=== PATIENT | male | born 1945 | race Caucasian/White ===

== ENCOUNTER 2021-04-18 18:28 | Inpatient (IN) | payer MEDICARE, SELFPAY ==
--- NOTE | ~2021-04-18 | XR_ITS ---
EXAMINATION: XR abdomen obstructive series DATE: 04/26/2021 05:55 INDICATION: Abdominal bloating TECHNIQUE: Upright and supine views of the abdomen were obtained. COMPARISON: CT, 04/18/2021 FINDINGS: There are multiple mildly dilated loops of small bowel. No free intraperitoneal gas is iden tified. There are minimal airspace opacities of the left lung base. A surgical drain is present in th e left lower quadrant. IMPRESSION: 1. Mildly dilated small bowel, likely postoperative ileus. Reviewed, dictated and finalized at location A.
--- NOTE | ~2021-04-18 | CT_ITS ---
EXAMINATION: CT abdomen pelvis w con INDICATION: Hematuria, pelvic pain TECHNIQUE: Computed tomographic images of the abdomen and pelvis were obtained after the administrati on of 100 cc of Omnipaque 350 intravenous contrast. The dose-length product (DLP) was 731.56 mGy-cm. Automated exposure control and iterative reconstruction technique were employed. COMPARISON: None available FINDINGS: Minimal dependent atelectasis is present in the lung bases. The heart size is normal. Punct ate calcifications in an otherwise normal spleen likely represent healed granulomatous disease. The l iver, pancreas, gallbladder, and adrenal glands are normal. There is a 4.5 x 3.3 cm complex and heter ogeneously enhancing mass of the right mid kidney. There is a 1.4 cm cyst of the left kidney upper po le. Colonic diverticulosis is present. There is wall thickening at the left anterolateral aspect of t he bladder which is contiguous with the adjacent sigmoid colon. Gas is present in the bladder wall. T here is also gas in the urinary bladder. The appendix is normal. There is no free intraperitoneal gas or evidence of bowel obstruction. There is marked enlargement of the prostate. There is an 11 mm lef t external iliac chain lymph node. A penile implant is noted with its reservoir implanted anteriorly in the right pelvis. There is severe lumbar spondylosis. . There is a left inguinal hernia containin g fat. IMPRESSION: 1. 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 2. Right kidney mass consistent with renal cell carcinoma. 3. Marked prostatomegaly. These findings were discussed with Dr. Tu Casarez DO in the Emergen cy Department at 2119 hours on 04/18/2021. 4. Enlarged left pelvic lymph node, reactive versus metastatic. Reviewed, dictated and finalized at location A. IMPRESSION: 1. Enterovesicular fistula between the sigmoid colon and left anterolateral maggie dder wall. 2. Right kidney mass consistent with renal cell carcinoma. 3. Marked prostatomegaly. These findings were discussed with Dr. Tu bejarano DO in the Emergency Department at 2119 hours on 04/18/2021. 4. Enlarged left pelvic lymph node, reactive versus metastatic.
--- NOTE | ~2021-04-18 | XR_ITS ---
EXAMINATION: XR chest 2V DATE: 04/18/2021 19:35 INDICATION: Fever and chills TECHNIQUE: PA and lateral views of the chest are obtained. COMPARISON: None available FINDINGS: There are minimal airspace opacities of the lung bases. There is no pleural effusion or pne umothorax. The cardiomediastinal silhouette is normal. There is mild thoracic spondylosis. IMPRESSION: 1. Minimal opacities of the lung bases, consistent with atelectasis versus pneumonia. Reviewed, dictated and finalized at location A. IMPRESSION: 1. Minimal opacities of the lung bases, consistent with atelectasis versus pneu monia.
[2021-04-18 18:35] VITALS: BP 126/75; PULSE 135; RESP 20; TEMP 38.1; O2SAT 99
[2021-04-18 19:08] LABS: Basophils Absolute Auto 0.1 K/mm3 (0.0-0.1); Basophils Percent Auto 0.4 % (0.2-1.2); Hematocrit 43.3 % (42.0-52.0); Hemoglobin 14.7 g/dL (14.0-18.0); Immature Granulocyte Percent A 0.5 % (0-0.5); Lymphocytes Absolute Auto 0.57 K/mm3 (0.9-3.2); Lymphocytes Percent Auto 2.7 % (18.3-44.2); Mean Corpuscular HGB Conc 33.9 g/dl (32-36); Mean Corpuscular Hemoglobin 29.6 pg (26-34); Mean Corpuscular Volume 87.1 fl (80-100); Mean Platelet Volume 9.3 fl (7.4-10.4); Monocytes Absolute Auto 0.6 K/mm3 (0.1-0.6); Monocytes Percent Auto 2.9 % (2.6-8.5); Neutrophils Absolute Auto 19.8 K/mm3 (1.3-6.7); Neutrophils Percent Auto 93.5 % (45.5-73.1); Platelet Count Result 374 k/mm3 (150-375); Red Blood Count 4.97 M/mm3 (4.6-6.20); Red Cell Distribution Width 13.5 % (11.5-14.5); White Blood Count 21.1 K/mm3 (4.5-10.0)
[2021-04-18 19:17] LABS: Lactic Acid Reflex 1.4 mmol/L (0.7-2.1)
[2021-04-18 19:20] LABS: INR 0.9; Prothrombin Time 12.5 Seconds (11.1-14.7)
[2021-04-18 19:21] LABS: Alanine Aminotransferase 17 U/L (4-50); Albumin Level 4.2 g/dL (3.5-5.1); Alkaline Phosphatase 74 U/L (38-126); Anion Gap 11 mmol/L (8-16); Aspartate Amino Transferase 23 U/L (17-59); Bilirubin,Total 0.9 mg/dL (0.2-1.3); Blood Urea Nitrogen 18 mg/dL (9-20); CRP 3.1 mg/dL (<1.0); Calcium 9.9 mg/dL (8.4-10.2); Carbon Dioxide 21 mmol/L (22-30); Chloride 100 mmol/L (98-107); Estimated CRCL calculation 53 ml/min; Estimated Glomerular Filt Rate > 60; Glucose 101 mg/dL (65-110); Lipase 69 U/L (23-300); Ovalocytes 1+ (NORMAL); Partial Thromboplastin Time 26.2 SECONDS (22.3-36.8); Platelet Estimate Adequate (Adequate); Potassium 4.5 mmol/L (3.4-5.0); Sodium 132 mmol/L (137-145)
[2021-04-18 19:29] LABS: Troponin I < 0.012 ng/mL (0.000-0.034)
--- NOTE | 2021-04-18 19:38 | ECG_ITS ---
Measurements Intervals [place] Rate: 109 P: MS: 0 QRS: 41 QRSD: 98 T: 25 QT: 327 QTc: 441 Interpretive Statements ATRIAL FLUTTER/TACHYCARDIA WITH RAPID VENTRICULAR RESPONSE BASELINE ARTIFACT- V1, V3-V6 ABNORMAL ECG Electronically Signed On 04-19-2021 6:43:42 CDT by Reginaldo Escobedo D.O.
--- NOTE | 2021-04-18 19:59 | ED.GENADULT ---
HPI - General Adult General Chief complaint: Urogenital-Male Stated complaint: bladder infection and fever. Time Seen by Provider: 04/18/21 19:14 Source: RN notes reviewed History of Present Illness HPI narrative: Patient presents emergency department from home for fever. Patient states that he developed a fever at home today 101 degrees and took Tylenol approximately an hour ago states he is had associated general aching with the fever. States he was seen by urology Dr. Hurtado today but has been having some bubbling coming out of his penis there was felt that he may have a fistula as he has a history of diverticulitis and supposed be getting a CT scan next week. States he did have a UTI 2 weeks ago and was placed on antibiotics he denies any chest pain shortness of breath coughing abdominal pain nausea vomiting or any other symptoms. Related Data Home Medications Medication Instructions Recorded Confirmed aspirin 81 mg PO DAILY 04/18/21 atorvastatin 04/18/21 losartan 04/18/21 omeprazole 04/18/21 tamsulosin mg PO 04/18/21 Allergies Allergy/AdvReac Type Severity Reaction Status Date / Time ORION Inhibitors Allergy Rash Verified 04/18/21 20:34 Penicillins Allergy Rash Verified 04/18/21 20:34 Review of Systems Review of Systems: Gen.: See HPI ENT: Denies congestion Respiratory: Denies shortness of breath or cough CV: Denies chest pain or palpitations GI: Denies abdominal pain nausea, emesis or diarrhea see HPI Musculoskeletal: Denies back pain or muscle pain Neuro: Denies numbness, tingling, weakness or focal weakness Skin: Denies rash Except as documented, all other systems reviewed and negative [facility] Past Medical History Medical History (Updated 04/18/21 @ 22:42 by Tu Casarez DO) Hypertension Social History Social History (Updated 04/18/21 @ 20:01 by Tu Casarez DO) Smoking status: Never smoker Exam Narrative: APPEARANCE: No acute distress, nontoxic, resting in bed EYES: EOMI HEENT: Normocephalic, atraumatic, OMM RESPIRATORY: No respiratory distress Clear to auscultation bilaterally with no rhonchi wheezing or rales. CARDIOVASCULAR: Regular rate and rhythm without murmurs rubs or gallops. ABDOMINAL: Soft, nontender, nondistended, no rebound or guarding MUSCULOSKELETAl: Moves all extremities. No clubbing, cyanosis or edema. NEURO: Awake and alert. Following commands, speech normal, no focal deficits SKIN:: Warm, dry. No rashes lesions or abrasions PSYCHIATRIC: Normal affect/mood, Course Course Emergency Course: Discussed with Dr. Jay rhinorrhea presentation work-up agrees with admission at this time with antibiotics request that consult be placed to GI as well patient will likely require GI work-up for fistula Discussed Dr. Pride presentation and work-up agrees with admission at this time Discussed with patient and family results of workup and diagnosis. Discussed need for admission. Patient and family understand and agree to current treatment plan Vital Signs Vital signs: Vital Signs Temperature 100.5 F H 04/18/21 18:35 Pulse Rate 135 H 04/18/21 18:35 Respiratory Rate 20 04/18/21 18:35 Blood Pressure 126/75 04/18/21 18:35 Pulse Oximetry 99 04/18/21 18:35 Temperature 100.3 F H 04/18/21 20:32 Pulse Rate 110 H 04/18/21 21:59 Respiratory Rate 16 04/18/21 21:59 Blood Pressure 112/78 04/18/21 21:59 Pulse Oximetry 97 04/18/21 21:59 Medical Decision Making Vital Signs Vital Signs: Vital Signs Temperature 100.5 F H 04/18/21 18:35 Pulse Rate 135 H 04/18/21 18:35 Respiratory Rate 20 04/18/21 18:35 Blood Pressure 126/75 04/18/21 18:35 Pulse Oximetry 99 04/18/21 18:35 Temperature 100.3 F H 04/18/21 20:32 Pulse Rate 110 H 04/18/21 21:59 Respiratory Rate 16 04/18/21 21:59 Blood Pressure 112/78 04/18/21 21:59 Pulse Oximetry 97 04/18/21 21:59 Lab Data Result diagrams: 04/18/21 18:54 0
[2021-04-18 20:17] LABS: Add Urine Microscopic? YES; Appearance Urine Cloudy (Clear); Bacteria Urine Trace /hpf; Bilirubin Urine Negative (Negative); Blood Urine 1+ (Negative); Color Urine Yellow (Yellow); Glucose Urine UA Negative (Negative); Ketones Urine Trace mg/dL (Negative); Leukocyte Esterase Ur 3+ LEU/UL (Negative); Nitrate Urine Negative (Negative); Protein Urine 2+ mg/dL (Negative); RBC Urine 21-50 /hpf (0-2); Specific Grav Ur 1.024 (1.001-1.035); Urobilinogen Urine Negative mg/dL (<2.0); WBC Clumps Urine Present /HPF; WBC Urine >75 /hpf
[2021-04-18 20:32] VITALS: BP 117/73; PULSE 105; RESP 20; TEMP 37.9; O2SAT 96
[2021-04-18] MEDS: SODIUM CHLORIDE 0.9% IV 1,000 ML 999 ML IV CONT (20:34)
[2021-04-18] MEDS: KETOROLAC 15 MG/ML VIAL (*BKC) IV PUSH (21:26)
[2021-04-18 21:59] VITALS: BP 112/78; PULSE 110; RESP 16; O2SAT 97
[2021-04-18 22:40] VITALS: BP 124/72; PULSE 109; RESP 17; O2SAT 97
[2021-04-18 22:45] VITALS: BP 106/63; PULSE 114; RESP 20; TEMP 37.2; O2SAT 98; BMI 27.8
--- NOTE | 2021-04-18 22:48 | PC.NURSE ---
This patient, Jung Palmer, was admitted to 3 Med Surg Room 332-01@22:45. Report taken from Mandy NAVA in ER. Patient/family oriented to hospital policies and general routines including ID bracelet, bed and alarms, visiting hours, pain management, procedures, bathroom and other care routines, personal items, smoking policy, room service/diet, and visiting hours. Information on how to activate the Rapid Response Team has been discussed. Patient/Family are encouraged to report perceived risks to care and to ask questions if they do not understand what they are told or what they should do.
[2021-04-18 23:02] VITALS: BMI 27.8
[2021-04-18] MEDS: SODIUM CHLORIDE 0.9% IV 1,000 ML 125 ML IV CONT (23:24)
--- NOTE | 2021-04-19 02:35 | PM.IMHP ---
H&P: HPI History of Present Illness Date/Time: 04/19/21 02:35 Chief Complaint: Chills Narrative: THIS IS A 75-YEAR-OLD MALE WITH PAST MEDICAL HISTORY SIGNIFICANT FOR HYPERTENSION, BENIGN PROSTATIC HYPERPLASIA, DIVERTICULOSIS, DIVERTICULITIS. PATIENT DOES HAD COMPLETED A COURSE OF ANTIBIOTICS FOR DIVERTICULITIS HE PRESENTED TO THE EMERGENCY ROOM DUE TO FEVERS AND CHILLS STATES THAT HE WAS PASSING GAS IN THE URINE . HE HAD BEEN TO SEE THE DOCTOR FOR THESE HAD EVALUATION AND WAS SENT HOME AND WAS SUPPOSED TO FOLLOW-UP WITH CT OF ABDOMEN AND PELVIS BUT INSTEAD PRESENTED TO THE EMERGENCY ROOM TODAY AFTER HE HAD AN EPISODE OF CHILLS AND RIGORS. SHE DENIES ANY NAUSEA ANY VOMITING ANY DIARRHEA OR CONSTIPATION HAD SOME PRESSURE IN THE PELVIC AREA HE THIS HAS BEEN GOING ON NOW FOR A WEEK OR SO. PRELIMINARY WORKUP WAS SIGNIFICANT FOR CT OF ABDOMEN AND PELVIS WITH GAS PRESENT IN THE URINARY BLADDER AND ENTERO VESICULAR FISTULA WELL RIGHT KIDNEY MASS. Review of Systems Review of Systems: PATIENT IS LAYING IN GURNEY Constitutional: Constitutional: Reports chills, Denies fatigue, Reports fever(s), Denies lethargy, Denies malaise, Reports night sweats and Denies weakness Eyes: Eyes: Denies change in vision ENT: Denies dysphagia and Denies odynophagia Cardiovascular: Cardiovascular: Denies irregular heart rhythm, Denies lightheadedness, Denies palpitations, Denies dyspnea, Denies dyspnea on exertion and Denies orthopnea Respiratory: Respiratory: Denies cough and Denies dyspnea Gastrointestinal: Gastrointestinal: Denies abdominal pain, Denies dyspepsia, Denies heartburn, Denies nausea and Denies vomiting Genitourinary: Genitourinary: Denies dysuria Comments: PASSING GAS IN THE URINE Musculoskeletal: Musculoskeletal: Denies back pain, Denies arthralgias and Denies joint swelling Integumentary/Breasts: Skin/Breast: Reports system reviewed and no additional complaints, except as docu Neurologic: Reports system reviewed and no additional complaints, except as documented Psychiatric: Psychiatric: Reports no additional psychiatric complaints Endocrine: Endocrine: Reports no additional endocrine complaints Hematologic/Lymphatic: Hematologic/Lymphatic: Reports no additional hematologic/lymphatic complaints Allergic/Immunologic: Allergic/Immunologic: Reports no additional allergic/immunologic complaints [facility] Past Medical History Medical History (Updated 04/19/21 @ 02:43 by Humble Kurtz MD) Hypertension Family History Family History (Updated 04/18/21 @ 23:12 by Dinora Rivas RN) Mother Congestive heart failure Father Lung cancer Social History Social History (Updated 04/18/21 @ 20:01 by Tu Casarez DO) Smoking status: Former smoker Alcohol intake: current Drinks per week: 4 Substance use: current Substance use type: marijuana Spiritual care concerns: No Meds Home Medications and Allergies Home Medications Medication Instructions Recorded Confirmed Type aspirin 81 mg PO DAILY 04/18/21 04/18/21 History atorvastatin 20 mg PO HS 04/18/21 04/18/21 History losartan 50 mg PO DAILY 04/18/21 04/18/21 History omeprazole 20 mg PO DAILY 04/18/21 04/18/21 History tamsulosin 0.4 mg PO DAILY 04/18/21 04/18/21 History Allergies Allergy/AdvReac Type Severity Reaction Status Date / Time ORION Inhibitors Allergy Rash Verified 04/18/21 22:52 Penicillins Allergy Rash Verified 04/18/21 22:52 Vital Signs Vital Signs - 24 hr 04/18/21 18:35 04/18/21 20:32 04/18/21 21:59 Temperature 100.5 F H 100.3 F H Pulse Rate 135 H 105 H 110 H Respiratory Rate 20 20 16 Blood Pressure 126/75 117/73 112/78 Pulse Oximetry 99 96 97 04/18/21 22:40 04/18/21 22:45 Temperature 99.0 F Pulse Rate 109 H 114 H Respiratory Rate 17 20 Blood Pressure 124/72 106/63 Pulse Oximetry 97 98 Exam Narrative: LAYING IN PERCY Const: General: cooperative, comfortable, no acute distress, well developed, a
[2021-04-19 06:00] VITALS: BP 106/63; PULSE 114; RESP 20; TEMP 37.2; O2SAT 98
--- NOTE | 2021-04-19 06:47 | WPDURCON ---
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 GI consultation pending. Pt. will likely need, at some point, colonoscopy. If convenient, I can try to do simultaneous cystoscopy. Underlying cause of enterovesical fistulas is usually GI related. 2nd priority: will start Finasteride for massively enlarge prostate. Will try to get prior PSA and repeat a PSA once current infection is cleared. 3rd priority: right renal cell ca. He should be a candidate for robotic right partial nephrectomy once other issues addressed. I discussed all above with pt. at length. Urology Consult Note HPI Date Seen: 04/19/21 Requesting Physician: Humble Kurtz MD Primary Care Provider: PHYSICIAN NOT ON STAFF Consult Narrative Narrative: Jung Palmer is a 75 year old male who lives locally but has medical care typically in [place]. He has a history of prostatism that is marginally controlled with tamsulosin. He reports consistently having normal PSAs in the past. He has had a penile prostheisis placed in past by a urologist at [facility]. Three days ago he developed pneumaturia and scant hematuria. He was referred to a urologist at [facility] (he cannot recall the physician's name ) by his primary care physician. He was in the process being set for CT scan of the abdomen and pelvis when, last evening, he developed fevers to 103? prompting presentation to the emergency department here. CT scan the abdomen and pelvis with without contrast reveals several findings note. First, he has evidence of fistula between the sigmoid colon and the anterior/ dome bladder. Secondly, he has marked enlargement of his prostate. Additionally, there is a 4.5 cm mass in the lower pole of his right kidney, consistent with primary renal cell carcinoma. A lastly, 1 marginally enlarged lymph node in left iliac chain that is nonspecific. Denies a history of hematuria urinary tract infections in the past. Review of Systems Cardiovascular: Cardiovascular: Denies chest pain, Denies lightheadedness, Denies palpitations and Denies dyspnea Respiratory: Respiratory: Denies dyspnea Gastrointestinal: Gastrointestinal: Denies diarrhea, Denies nausea and Denies vomiting Genitourinary: Genitourinary: Reports hematuria, Reports dysuria and Reports other (pneumaturia) Endocrine: Endocrine: Denies palpitations [facility] Past Medical History Medical History Hypertension Family History Family History Mother Congestive heart failure Father Lung cancer Social History Social History Smoking status: Former smoker Alcohol intake: current Drinks per week: 4 Substance use: current Substance use type: marijuana Spiritual care concerns: No Meds Home Medications and Allergies Home Medications Medication Instructions Recorded Confirmed Type aspirin 81 mg PO DAILY 04/18/21 04/18/21 History atorvastatin 20 mg PO HS 04/18/21 04/18/21 History losartan 50 mg PO DAILY 04/18/21 04/18/21 History omeprazole 20 mg PO DAILY 04/18/21 04/18/21 History tamsulosin 0.4 mg PO DAILY 04/18/21 04/18/21 History Allergies Allergy/AdvReac Type Severity Reaction Status Date / Time ORION Inhibitors Allergy Rash Verified 04/18/21 22:52 Penicillins Allergy Rash Verified 04/18/21 22:52 Vital Signs Vital Signs - 24 hr 04/18/21 18:35 04/18/21 20:32 04/18/21 2
[2021-04-19 06:54] LABS: Basophils Absolute Auto 0.1 K/mm3 (0.0-0.1); Basophils Percent Auto 0.4 % (0.2-1.2); Hematocrit 35.9 % (42.0-52.0); Hemoglobin 12.2 g/dL (14.0-18.0); Immature Granulocyte Absolute 0.26 K/mm3 (0.00-0.031); Immature Granulocyte Percent A 1.1 % (0-0.5); Lymphocytes Percent Auto 3.5 % (18.3-44.2); Mean Corpuscular Hemoglobin 29.8 pg (26-34); Mean Corpuscular Volume 87.6 fl (80-100); Mean Platelet Volume 9.1 fl (7.4-10.4); Monocytes Percent Auto 4.5 % (2.6-8.5); Neutrophils Absolute Auto 20.7 K/mm3 (1.3-6.7); Neutrophils Percent Auto 90.5 % (45.5-73.1); Platelet Count Result 299 k/mm3 (150-375); White Blood Count 22.8 K/mm3 (4.5-10.0)
[2021-04-19 07:11] LABS: Alanine Aminotransferase 14 U/L (4-50); Alkaline Phosphatase 52 U/L (38-126); Anion Gap 10 mmol/L (8-16); Aspartate Amino Transferase 19 U/L (17-59); Bilirubin,Total 1.1 mg/dL (0.2-1.3); Blood Urea Nitrogen 17 mg/dL (9-20); Calcium 8.6 mg/dL (8.4-10.2); Carbon Dioxide 20 mmol/L (22-30); Chloride 103 mmol/L (98-107); Estimated CRCL calculation 49 ml/min; Estimated Glomerular Filt Rate 59; Glucose 97 mg/dL (65-110); Potassium 4.7 mmol/L (3.4-5.0); Sodium 133 mmol/L (137-145)
[2021-04-19] MEDS: SODIUM CHLORIDE 0.9% IV 1,000 ML 125 ML IV CONT ×2 (07:39→16:06)
[2021-04-19] MEDS: ASPIRIN 81 MG CHEWABLE TABLET PO (09:46)
[2021-04-19] MEDS: TAMSULOSIN HCL 0.4 MG CAPSULE PO (09:46)
[2021-04-19] MEDS: PANTOPRAZOLE 40 MG TABLET PO (09:46)
[2021-04-19] MEDS: FINASTERIDE 5 MG TABLET PO (09:46)
[2021-04-19] MEDS: LOSARTAN POTASSIUM 50 MG TABLET PO (09:46)
--- NOTE | 2021-04-19 13:08 | WPDGICN ---
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 Jay, who will be doing a cystoscopy on him. I will schedule him for colonoscopy to be done tomorrow morning. I discussed the procedure and prep with him including the risks such as the possibilities of bleeding or perforation of the possibility of cardiopulmonary complications and the fact that a complication could result in the need for surgery. GI Consult Note Consult date/time: 04/19/21 13:08 HPI: Jung Palmer is a 75 year old male who was admitted yesterday through the emergency room because of passing gas through his penis. He knew that this was abnormal. He had recently diagnosed himself as having a urinary tract infection. He had had lower abdominal in fact suprapubic discomfort beginning a week ago he called his primary care physician and was prescribed antibiotics. He was scheduled to have a CT scan of the abdomen today or tomorrow but came to the emergency room when these new symptoms developed. CT scan here does show evidence of a entero vesicular fistula. I have personally reviewed the CT scan. In addition to the fistula, he has a renal mass, enlarged prostate, and 1 abnormal pelvic lymph node. He does have history of having had diverticulitis in the past, but none recently. He has not had a change in bowel habits or blood in his stools. He has had a colonoscopy in the past but has been quite a while . Review of Systems Review of Systems: All systems reviewed & are unremarkable except as noted in HPI and below PMFSH Past Medical History Medical History Hypertension Family History Family History Mother Congestive heart failure Father Lung cancer Social History Social History Smoking status: Former smoker Alcohol intake: current Drinks per week: 4 Substance use: current Substance use type: marijuana Spiritual care concerns: No Meds Home Medications and Allergies Home Medications Medication Instructions Recorded Confirmed Type aspirin 81 mg PO DAILY 04/18/21 04/18/21 History atorvastatin 20 mg PO HS 04/18/21 04/18/21 History losartan 50 mg PO DAILY 04/18/21 04/18/21 History omeprazole 20 mg PO DAILY 04/18/21 04/18/21 History tamsulosin 0.4 mg PO DAILY 04/18/21 04/18/21 History Allergies Allergy/AdvReac Type Severity Reaction Status Date / Time ORION Inhibitors Allergy Rash Verified 04/18/21 22:52 Penicillins Allergy Rash Verified 04/18/21 22:52 Vital Signs Vital Signs - 24 hr 04/18/21 18:35 04/18/21 20:32 04/18/21 21:59 Temperature 38.1 C H 37.9 C H Pulse Rate 135 H 105 H 110 H Respiratory Rate 20 20 16 Blood Pressure 126/75 117/73 112/78 Pulse Oximetry 99 96 97 04/18/21 22:40 04/18/21 22:45 04/19/21 06:00 Temperature 37.2 C 37.2 C Pulse Rate 109 H 114 H 114 H Respiratory Rate 17 20 20 Blood Pressure 124/72 106/63 106/63 Pulse Oximetry 97 98 98 Exam Const: General: cooperative Nutritional Appearance: well nourished Orientation/consciousness: patient oriented x3 Resp: Auscultation: clear to auscultation bilaterally Cardio: Rhythm: regular rhythm GI: Inspection: normal to inspection GI Palp: Yes Soft to palpation, No Tenderness to palpation present (GI) and Yes No hepatosplenomegaly present Auscultation: normal bowel sounds Rectal Exam: deferred Results Labs CBC & Chem 7: 04/19/21 06:44 04/19/21 06:44 Labs: Short CBC 04/18/21 04/19/21 Range/Units 18:54 06:44 WBC 21.1 H 22.8 H (4.5-10.0) K/mm3 Hgb 14.7 12.2 L (14.0-18.0) g/dL Hct 43.3 35.9 L (42.0-52.0) % Plt Count 374 299 (150-375) k/mm3 [facility] 04/18/21 04/19/21 18:54 06:44 Sodium
[2021-04-19 14:00] VITALS: BP 131/72; PULSE 84; RESP 18; TEMP 38.5; O2SAT 97
[2021-04-19 14:29] VITALS: TEMP 38.5
--- NOTE | 2021-04-19 14:58 | PM.IMPN ---
Progress Note: A&P Assessment and Plan (1) Sepsis: Code(s): A41.9 - Sepsis, unspecified organism Status: Acute Assessment and Plan: Evident on arrival with fever, tachycardia, leukocytosis. Suspect source at this time is urinary. Continue empiric antibiotic therapy with Levaquin while awaiting urine and blood cultures. Monitor vital signs and urine output. (2) Acute UTI: Code(s): N39.0 - Urinary tract infection, site not specified Status: Acute Assessment and Plan: Continue IV levaquin with urine and blood cultures pending. Prostatomegaly may be contributing to outlet obstruction. 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 Outpatient CT was ordered but patient developed fevers and presented here. 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 GI and urology consulted - appreciate input. Plan is for colonoscopy +/- cystoscopy tomorrow. NPO at midnight for such. (4) Renal mass, right: Code(s): N28.89 - Other specified disorders of kidney and ureter Status: Acute Assessment and Plan: CT abd/pel demonstrates 4.5 x 3.3cm mass of the right kidney concerning for renal cell carcinoma. This is a new finding. Urology following. Primary concern is to address the fistula situation and then further workup on the renal mass can be address on outpatient basis. (5) Hypertension: Code(s): I10 - Essential (primary) hypertension Status: Chronic Assessment and Plan: Stable, last 131/72. Continue home losartan. Monitor BP and adjust treatment as needed. Subjective Date/time seen: 04/19/21 1400 Interval history: Mr. Palmer is a pleasant 75yo M with history of hypertension and BPH who is seen in follow up for UTI and enterovesicular fistula, also found to have 4.5cm right renal mass. He reports feeling OK today but currently has a fever. Fevers began yesterday at home. He is still having some pneumaturia and a lot of straining/effort to urinate but not really having pain with urinating. Hematuria is improved but urine is still dark. He denies chest pain, cough, shortness of breath, nausea or vomiting. Review of Systems Review of Systems: All systems reviewed & are unremarkable except as noted in HPI and below Exam Narrative: General: Well-nourished male resting sitting up in bed in no acute distress. HEENT: Normocephalic, EOMI, oral mucosa moist. Cardiovascular: Rate and rhythm are regular. Respiratory: Lungs clear to auscultation bilaterally. Respirations even and non-labored. Tolerating room air. Abdomen: Soft, non-tender, non-distended, bowel sounds present. Extremities: Peripheral pulses intact. No edema or pain to palpation. Neuro: Awake and alert; answering questions appropriately. No focal neurological deficits. Speech is clear. Urine in the urinal at bedside is sarita color. Objective Data Vital Signs Vital Signs: Last Vital Signs Temp 100.0 F H 04/19/21 15:30 Pulse 84 04/19/21 14:00 Resp 18 04/19/21 14:00 BP 131/72 04/19/21 14:00 Pulse Ox 97 04/19/21 14:00 Intake/Output Intake/Output: Intake & Output 04/16/21 04/17/21 04/18/21 04/19/21 23:59 23:59 23:59 23:59 Intake Total 1000 1390 Output Total 350 Balance 1000 1040 Meds/Results Medications: Active Medications Generic Name Dose Route Start Last Admin Trade Name Freq PRN Reason Stop Dose Admin Aspirin 81 mg 04/19/21 08:00 04/19/21 09:46 Aspirin 81 Mg Chewable Tablet PO 81 mg ALMITA
[2021-04-19 15:30] VITALS: TEMP 37.8
[2021-04-19] MEDS: polyethylene glycoL 3350 238 GM BOTTLE PO (16:06)
[2021-04-19 16:30] VITALS: TEMP 36.3
[2021-04-19] MEDS: ATORVASTATIN 20 MG TABLET PO (20:55)
[2021-04-19 22:00] VITALS: BP 129/77; PULSE 84; RESP 20; TEMP 37; O2SAT 100
[2021-04-20] VITALS (8 sets, daily range): BP systolic 100–145; BP diastolic 43–84; PULSE 79–101; RESP 18–24; TEMP 36.3–37.1; O2SAT 90–100
[2021-04-20] MEDS: MAGNESIUM CITRATE 300 ML BTL PO (05:30)
[2021-04-20 06:37] LABS: Basophils Percent Auto 0.1 % (0.2-1.2); Eosinophils Percent Auto 0.1 % (0-4.4); Hemoglobin 11.7 g/dL (14.0-18.0); Immature Granulocyte Absolute 0.15 K/mm3 (0.00-0.031); Immature Granulocyte Percent A 0.9 % (0-0.5); Lymphocytes Absolute Auto 0.66 K/mm3 (0.9-3.2); Lymphocytes Percent Auto 4.2 % (18.3-44.2); Mean Corpuscular HGB Conc 33.4 g/dl (32-36); Mean Corpuscular Hemoglobin 29.5 pg (26-34); Mean Corpuscular Volume 88.2 fl (80-100); Mean Platelet Volume 9.9 fl (7.4-10.4); Monocytes Absolute Auto 0.6 K/mm3 (0.1-0.6); Monocytes Percent Auto 3.5 % (2.6-8.5); Neutrophils Absolute Auto 14.4 K/mm3 (1.3-6.7); Neutrophils Percent Auto 91.2 % (45.5-73.1); Platelet Count Result 265 k/mm3 (150-375); Red Blood Count 3.97 M/mm3 (4.6-6.20); Red Cell Distribution Width 14.3 % (11.5-14.5); White Blood Count 15.8 K/mm3 (4.5-10.0)
[2021-04-20] MEDS: SODIUM CHLORIDE 0.9% IV 1,000 ML 125 ML IV CONT ×2 (06:53→18:39)
[2021-04-20 06:56] LABS: Alanine Aminotransferase 17 U/L (4-50); Albumin Level 2.8 g/dL (3.5-5.1); Alkaline Phosphatase 90 U/L (38-126); Anion Gap 9 mmol/L (8-16); Aspartate Amino Transferase 29 U/L (17-59); Bilirubin,Total 0.9 mg/dL (0.2-1.3); Blood Urea Nitrogen 16 mg/dL (9-20); Calcium 8.4 mg/dL (8.4-10.2); Carbon Dioxide 19 mmol/L (22-30); Chloride 104 mmol/L (98-107); Estimated CRCL calculation 49 ml/min; Estimated Glomerular Filt Rate 59; Glucose 98 mg/dL (65-110); Magnesium 1.5 mg/dL (1.6-2.3); Sodium 132 mmol/L (137-145)
[2021-04-20] MEDS: ASPIRIN 81 MG CHEWABLE TABLET PO (08:51)
[2021-04-20] MEDS: PANTOPRAZOLE 40 MG TABLET PO (08:52)
[2021-04-20] MEDS: FINASTERIDE 5 MG TABLET PO (08:52)
[2021-04-20] MEDS: TAMSULOSIN HCL 0.4 MG CAPSULE PO (08:52)
[2021-04-20] MEDS: MAGNESIUM SULF 2 GM/WATER 50ML 2 GM/50 ML BAG IVPB (09:01)
--- NOTE | 2021-04-20 10:20 | WPDCDIQUERY2 ---
CDI Query Clarification Request -Sepsis with fever,tachycardia, leukocytosis has been documented -SOFA 0 Please document evidence of systemic response to infection to support diagnosis of sepsis.
--- NOTE | 2021-04-20 10:55 | PC.NURSE ---
To GI Lab per w/c, IV on standby. Report given to Mariana NAVA.
[2021-04-20] MEDS: LACTATED RINGERS 1,000 ML 150 ML IV CONT (11:55)
--- NOTE | 2021-04-20 12:03 | WPDANESEPPF ---
Anes - Initial Pre Proc Eval Procedure: Operation Date: 04/20/21 12:00 Proposed Procedures p Colonoscopy - Everette Huang MD s Flexible Cystoscopy - Aric Jay MD Date/Time: 04/20/21 12:03 Surgeon: ROBERTH Moreira Pre Op Diagnosis: Sepsis,UTI,Enterovesicular Fistula,Rt Kidney Mass Patient Data Age: 75 Gender: M Height: 1.78 m Weight: 88 kg Last Vital Signs Temp 97.4 F L 04/20/21 11:08 Pulse 80 04/20/21 11:08 Resp 18 04/20/21 11:08 BP 145/84 H 04/20/21 11:08 Pulse Ox 100 04/20/21 11:08 Allergies Allergy/AdvReac Type Severity Reaction Status Date / Time ORION Inhibitors Allergy Rash Verified 04/20/21 11:00 Penicillins Allergy Rash Verified 04/20/21 11:00 Home Medications Medication Instructions Recorded Confirmed Type aspirin 81 mg PO DAILY 04/18/21 04/18/21 History atorvastatin 20 mg PO HS 04/18/21 04/18/21 History losartan 50 mg PO DAILY 04/18/21 04/18/21 History omeprazole 20 mg PO DAILY 04/18/21 04/18/21 History tamsulosin 0.4 mg PO DAILY 04/18/21 04/18/21 History Laboratory Tests 04/20/21 04/20/21 06:03 06:03 WBC 15.8 K/mm3 H K/mm3 (4.5-10.0) RBC 3.97 M/mm3 L M/mm3 (4.6-6.20) Hgb 11.7 g/dL L g/dL (14.0-18.0) Hct 35.0 % L % (42.0-52.0) MCV 88.2 fl fl (80-100) MCH 29.5 pg pg (26-34) MCHC 33.4 g/dl g/dl (32-36) RDW 14.3 % % (11.5-14.5) Plt Count 265 k/mm3 k/mm3 (150-375) MPV 9.9 fl fl (7.4-10.4) Immature Gran % (Auto) 0.9 % H % (0-0.5) Neut % (Auto) 91.2 % H % (45.5-73.1) Lymph % (Auto) 4.2 % L % (18.3-44.2) [place] % (Auto) 3.5 % % (2.6-8.5) Eos % (Auto) 0.1 % % (0-4.4) Baso % (Auto) 0.1 % L % (0.2-1.2) Lymph # (Auto) 0.66 K/mm3 L K/mm3 (0.9-3.2) [place] # (Auto) 0.6 K/mm3 K/mm3 (0.1-0.6) Eos # (Auto) 0.0 K/mm3 K/mm3 (0-0.3) Baso # (Auto) 0.0 K/mm3 K/mm3 (0.0-0.1) Abs Immat Gran (auto) 0.15 K/mm3 H K/mm3 (0.00-0.031) Absolute Neuts (auto) 14.4 K/mm3 H K/mm3 (1.3-6.7) Absolute Nucleated RBC 0.0 K/mm3 K/mm3 (0.0-0.012) Nucleated RBC % 0.0 % % (0.0-0.2) Sodium 132 mmol/L L mmol/L (137-145) Potassium 4.0 mmol/L mmol/L (3.4-5.0) Chloride 104 mmol/L mmol/L (98-107) Carbon Dioxide 19 mmol/L L mmol/L (22-30) Anion Gap 9 mmol/L mmol/L (8-16) BUN 16 mg/dL mg/dL (9-20) Creatinine 1.20 mg/dL mg/dL (0.7-1.3) Estim Creat Clear Calc 49 ml/min ml/min Estimated GFR 59 (59 - ) Glucose 98 mg/dL mg/dL (65-110) Calcium 8.4 mg/dL mg/dL (8.4-10.2) Magnesium 1.5 mg/dL L mg/dL (1.6-2.3) Total Bilirubin 0.9 mg/dL mg/dL (0.2-1.3) AST 29 U/L U/L (17-59) ALT 17 U/L U/L (4-50) Alkaline Phosphatase 90 U/L U/L (38-126) Total Protein 5.0 g/dL L g/dL (6.3-8.2) Albumin 2.8 g/dL L g/dL (3.5-5.1) Patient hx anesthesia problems: none Family hx anesthesia problems: none PMFSH Past Medical History Medical History Hypertension Family History Family History Mother Congestive heart failure Father Lung cancer Social History Social History Smoking status: Former smoker Alcohol intake: current Drinks per week: 4 Substance use: current Substance use type: marijuana Spiritual care concerns: No Anes - Eval Final PreProcedure Day of Procedure 04/20/21 12:03 Patient weight: obese Heart: regular rate and rhythm Lungs: clear to auscultation Airway: Mallampati scale class II Neurological: alert and oriented Last oral intake: >/= 8 hours ASA classification: III Emergent: no Anesthetic plan: proceed Anesthesia type and monitoring: general GIVS and st
[2021-04-20] MEDS: LIDOCAINE HCL 2% GEL UROJET 10 ML PKG MUCOUS MEM (12:23)
--- NOTE | 2021-04-20 13:15 | PC.NURSE ---
Returned from GI Lab. Report received from BRANDY.
--- NOTE | 2021-04-20 13:49 | W.PM.PROC2 ---
Procedure Note - Detailed Date of Procedure 04/20/21 Pre-op Diagnosis Sepsis,UTI,Enterovesicular Fistula,Rt Kidney Mass Post-op Diagnosis same Procedure Performed Flexible cystoscopy Surgeon Aric Jay MD Anesthesia general Findings Small area of hyperemia in the bladder dome, consistent with colovesical fistula. No obvious intravesical neoplasm Description of Procedure Patient brought to the op suite where he has prepped draped in routine sterile fashion while in A supine position. 2% lidocaine jelly was introduced intraurethrally and systemic sedation is administered per the anesthesia department. Cystoscopy is undertaken with a 16 F flexible cystoscope. He has notable lateral lobe hyperplasia of the prostate with approximately a 3.5-4 cm prostatic urethra. There is a small-moderate size median lobe. Urine in the bladder was purulence and has a lot of fecal material. Mucosa itself, however shows only mild hyperemia with an area slightly more intense hyperemia near the dome. This is likely the site of his fistula. There is no obvious intravesical neoplasm. He has a single orthotopic ureteral orifice bilaterally. At this point Dr. Huang is available to do colonoscopy. Estimated Blood Loss 0 Urine Output 350 Drains No Packing No Pathology none sent Complications No immediate complications Condition stable Disposition PACU
--- NOTE | 2021-04-20 14:02 | SUR.OPER ---
1221 second time out was completed for colonoscopy with Dr. Huang in the room with all the other staff present.
--- NOTE | 2021-04-20 15:08 | ECG_ITS ---
Measurements Intervals [place] Rate: 81 P: [place]: 0 QRS: 50 QRSD: 105 T: 35 QT: 393 QTc: 457 Interpretive Statements ATRIAL FLUTTER/TACHYCARDIA ABNORMAL ECG Electronically Signed On 04-20-2021 16:54:25 CDT by Reginaldo Escobedo D.O.
--- NOTE | 2021-04-20 15:39 | PM.CNGS ---
Assessment and Plan Assessment and plan (1) Enterovesical fistula: Onset Date: Unknown Code(s): N32.1 - Vesicointestinal fistula Status: Acute Assessment and Plan: This is suspected to have occurred within the last 1-2 weeks. The patient did go through a course of antibiotics for suspected diverticulitis about 1 - [address] scan of the abdomen and pelvis on this admission suggested possible fistula between the midportion of the sigmoid colon where it lays against the dome of the bladder on the left side. This was confirmed by cystoscopy by Dr. Jay today. Also patient underwent a bowel prep and then colonoscopy which confirmed diverticuli without significant inflammation throughout the sigmoid, descending colon, and the transverse colon. He was found to have no polyps. He did have some internal hemorrhoids. I have discussed thoroughly with the patient and his the plan of a hand assisted laparoscopic sigmoid resection with takedown of the colovesical fistula. We would then try to do a stapled anastomosis of the proximal sigmoid or descending colon to the rectum. This would usually take 2-3 hours. I doubt whether I'll need to take down the splenic flexure but this is a small possibility. He was informed of the small possibility of the need for a diverting loop ileostomy if there is any problems with signs of leakage from the anastomosis once this accomplished. Since he was able to have a bowel prep I think it is reasonable to proceed with this the near future. I will see if we can get this on for this coming Friday.( I scheduled it late today) In the interval Let's keep him on clear liquids to keep the colon Clean other than allowing him some surgical Ensure 3 times a day over the next few days. I will do a modified colon prep on Friday evening with the typical antibiotic bowel prep that night prior to surgery. This will depend on surgical schedule. I will have the wound care nurses Gely for ostomy on the right case we need a diverting ileostomy. Thank you for asking to see this pleasant patient and help with this difficult problem. (2) Diverticulitis of large intestine with complication: Onset Date: Unknown Code(s): K57.32 - Diverticulitis of large intestine without perforation or abscess without bleeding Status: Acute Assessment and Plan: Patient believes he has had at least 1 previous episode of diverticulitis requiring antibiotics. He has been to trying to stay on high-fiber side of his meals in order to prevent problems with hemorrhoids. He has not been having any specific bleeding after bowel movements and typically had 1 bowel movement per day on average prior to 1 month ago when he started having these recent problems. (3) Acute UTI: Code(s): N39.0 - Urinary tract infection, site not specified Status: Acute (4) Renal mass, right: Code(s): N28.89 - Other specified disorders of kidney and ureter Status: Acute (5) Hypertension: Code(s): I10 - Essential (primary) hypertension Status: Chronic History of Present Illness Consult details Consult date: 04/20/21 Reason for consult: other ( Recently discovered colovesical fistula (sigmoid to urinary bladder).) Requesting physician: Kaylen Estes PA-C Narrative: Jung Palmer is a 75 year old White male who was admitted on 04/18/2021 through the emergency room because of passing gas through his penis. He knew that this was abnormal. He had recently diagnosed himself as having a urinary tract infection. He had had lower abdominal pain in the suprapubic area beginning a week ago. He called his primary care physician and was prescribed antibiotics. He was scheduled to have a CT scan of the abdomen/pelvis as an outpt, but came to the emergency room when these new symptoms developed. CT scan of the abd/pelvis here does show evidence of a colovesicul fistula 9see CT report). I have
--- NOTE | 2021-04-20 16:40 | PM.IMPN ---
Progress Note: A&P Assessment and Plan (1) Sepsis: Code(s): A41.9 - Sepsis, unspecified organism Status: Acute Assessment and Plan: Evident on arrival with fever, tachycardia, leukocytosis. Source is UTI. Continue Levaquin. Monitor cultures. Monitor vital signs and urine output. (2) Acute UTI: Code(s): N39.0 - Urinary tract infection, site not specified Status: Acute Assessment and Plan: Urine culture grew Klebsiella. Continue IV Levaquin. Blood cultures no growth thus far. (3) Enterovesical fistula: Onset Date: Unknown Code(s): N32.1 - Vesicointestinal fistula Status: Acute Assessment and Plan: Patient presented to his urologist at [facility] for evaluation of pneumaturia. Outpatient CT was ordered but patient developed fevers and presented here. 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 GI and urology consulted - appreciate input. Had colonoscopy and cystoscopy this morning by Dr Huang and Dr Jay, respectively. Clear liquid diet. Recommended general surgery consult - discussed with Dr Delgado. He has offered sigmoid resection planned for Friday afternoon. Added flagyl due to recent diverticulitis. (4) Renal mass, right: Code(s): N28.89 - Other specified disorders of kidney and ureter Status: Acute Assessment and Plan: CT abd/pel demonstrates 4.5 x 3.3cm mass of the right kidney concerning for renal cell carcinoma. This is a new finding. Urology following. Primary concern is to address the fistula situation and then further workup on the renal mass can be address on outpatient basis. (5) Hypertension: Code(s): I10 - Essential (primary) hypertension Status: Chronic Assessment and Plan: Stable, last /. Continue home losartan. Monitor BP and adjust treatment as needed. (6) Arrhythmia: Code(s): I49.9 - Cardiac arrhythmia, unspecified Status: Acute Assessment and Plan: EKG was repeated late this afternoon for perioperative risk assessment to compare to his EKG on arrival that showed possible atrial tachycardia. Repeat EKG shows atrial flutter/atrial tachycardia. Patient has no known history of arrhythmia. He is completely asymptomatic without chest pains, shortness of breath or palpitations and he was unaware of this. Unclear how long he has been in this rhythm. Appreciate cardiology evaluation for further recommendations of medical management and for perioperative risk assessment with surgery planned for Friday. Will order an echocardiogram for now pending cardiology input. Subjective Date/time seen: 04/20/21 1400 Interval history: Mr. Palmer is a pleasant 75yo M with history of hypertension and BPH who is seen in follow up for UTI and enterovesicular fistula, also found to have 4.5cm right renal mass. He is seen after his procedure this morning (colonoscopy + cystoscopy) and reports feeling well. No issues with urination at present. No chest pain, palpitations, shortness of breath, nausea or vomiting. Review of Systems Review of Systems: All systems reviewed & are unremarkable except as noted in HPI and below Exam Narrative: General: Well-nourished male resting sitting up in bed in no acute distress. HEENT: Normocephalic, EOMI, oral mucosa moist. Cardiovascular: Rate and rhythm are regular. Respiratory: Lungs clear to auscultation bilaterally. Respirations even and non-labored. Tolerating room air. Abdomen: Soft, non-tender, non-distended, bowel sounds present. Extremities: Peripheral pulses intact. No edema or pain to palpa
[2021-04-20] MEDS: MAGNESIUM OXIDE 400 MG TABLET PO (17:20)
[2021-04-20] MEDS: ATORVASTATIN 20 MG TABLET PO (21:31)
[2021-04-20] MEDS: metroNIDAZOLE 250 MG TABLET 500 MG PO (22:49)
[2021-04-21] VITALS (10 sets, daily range): BP systolic 136–145; BP diastolic 73–86; PULSE 79–83; RESP 16–18; TEMP 36.4–36.9; O2SAT 94–99
--- NOTE | 2021-04-21 | ECHO_ITS ---
Patient Info Name: Jung Palmer Age: 75 years : 1945 Gender: Male Ht: 70 in Wt: 194 lbs BSA: 2.10 m2 HR: 88 bpm BP: 135 / 83 mmHg Heart Rhythm: Atrial Flutter Technical Quality: Good Exam Date: 04/21/2021 10:44 AM Exam Location: [facility] Pulmonary Exam Room: 332 Patient Status: Inpatient Admit Date: 04/19/2021 Staff Ordering Physician: Kaylen Estes PA-C Communication Specialist: Sherice Munoz RDCS Attending Provider: Kaylen Estes PA-C Exam Type: CA echo doppler color flow Study Info Indications - afib aflutter /pre op Complete two-dimensional, color flow and Doppler transthoracic echocardiogram is performed. Summary 1. Complete two-dimensional, color flow and Doppler transthoracic echocardiogram is performed. 2. Left ventricular chamber dimension is normal. 3. Left ventricular systolic function is normal, estimated at 55-60%. 4. There is mild mitral valve regurgitation. 5. Normal atrial dimensions. Left Ventricle Left ventricular chamber dimension is normal. Left ventricular systolic function is normal, estimated at 55-60%. The left ventricular diastolic function is normal. Right Ventricle Right ventricular chamber dimension is normal. Left Atria Left atrial chamber dimension is normal. Right Atria Right atrial chamber dimension is normal. Aortic Valve The aortic valve is normal. Pulmonic Valve The pulmonic valve is normal. Mitral Valve The mitral valve has normal leaflets. There is mild mitral valve regurgitation. Tricuspid Valve The tricuspid valve leaflets are normal. Pericardium/Pleural The pericardium appears normal. Aorta The aortic root size at the sinus of Valsalva is normal. Left Ventricular Outflow Tract Name Value Normal LVOT 2D LVOT Diameter 2.1 cm LVOT Doppler LVOT Peak Gradient 3 mmHg LVOT Mean Gradient 2 mmHg LVOT VTI 17 cm LVOT VTI/AV VTI Ratio 0.7 LVOT Stroke Volume 61 ml LVOT CO 14.6 l/min LVOT CI 7.0 l/min/m2 Pulmonic Valve Name Value Normal PV Doppler PV Peak Gradient 3 mmHg Mitral Valve Name Value Normal MV Doppler MV Decel [place] 631 cm/s2 MV PHT 38 ms MV Area (PHT) 5.8 cm2 4.0-5.0 MV Diastolic Function MV E Peak Velocity
[2021-04-21] MEDS: SODIUM CHLORIDE 0.9% IV 1,000 ML 125 ML IV CONT (04:19)
[2021-04-21 05:59] LABS: Basophils Percent Auto 0.2 % (0.2-1.2); Eosinophils Absolute Auto 0.1 K/mm3 (0-0.3); Eosinophils Percent Auto 0.9 % (0-4.4); Hematocrit 32.5 % (42.0-52.0); Hemoglobin 10.8 g/dL (14.0-18.0); Immature Granulocyte Absolute 0.09 K/mm3 (0.00-0.031); Lymphocytes Absolute Auto 0.54 K/mm3 (0.9-3.2); Lymphocytes Percent Auto 6.1 % (18.3-44.2); Mean Corpuscular HGB Conc 33.2 g/dl (32-36); Mean Corpuscular Volume 87.4 fl (80-100); Mean Platelet Volume 9.6 fl (7.4-10.4); Monocytes Absolute Auto 0.5 K/mm3 (0.1-0.6); Monocytes Percent Auto 5.2 % (2.6-8.5); Neutrophils Absolute Auto 7.7 K/mm3 (1.3-6.7); Neutrophils Percent Auto 86.6 % (45.5-73.1); Platelet Count Result 238 k/mm3 (150-375); Red Blood Count 3.72 M/mm3 (4.6-6.20); Red Cell Distribution Width 14.1 % (11.5-14.5); White Blood Count 8.9 K/mm3 (4.5-10.0)
[2021-04-21] MEDS: metroNIDAZOLE 250 MG TABLET 500 MG PO ×3 (06:37→21:41)
[2021-04-21 07:24] LABS: Anion Gap 7 mmol/L (8-16); Blood Urea Nitrogen 14 mg/dL (9-20); Carbon Dioxide 19 mmol/L (22-30); Chloride 105 mmol/L (98-107); Estimated CRCL calculation 58 ml/min; Estimated Glomerular Filt Rate > 60; Glucose 92 mg/dL (65-110); Potassium 4.2 mmol/L (3.4-5.0); Sodium 131 mmol/L (137-145)
[2021-04-21] MEDS: TAMSULOSIN HCL 0.4 MG CAPSULE PO (07:45)
[2021-04-21] MEDS: MAGNESIUM OXIDE 400 MG TABLET PO ×2 (07:45→17:26)
[2021-04-21] MEDS: ASPIRIN 81 MG CHEWABLE TABLET PO (07:45)
[2021-04-21] MEDS: LOSARTAN POTASSIUM 50 MG TABLET PO (07:45)
[2021-04-21] MEDS: PANTOPRAZOLE 40 MG TABLET PO (07:45)
[2021-04-21] MEDS: FINASTERIDE 5 MG TABLET PO (07:46)
--- NOTE | 2021-04-21 08:11 | PM.IMPN ---
Progress Note: A&P Assessment and Plan (1) Sepsis: Code(s): A41.9 - Sepsis, unspecified organism Status: Acute Assessment and Plan: Evident on arrival with fever, tachycardia, leukocytosis. Source is UTI. Continue Levaquin. Monitor cultures. Monitor vital signs and urine output. (2) Acute UTI: Code(s): N39.0 - Urinary tract infection, site not specified Status: Acute Assessment and Plan: Urine culture grew Klebsiella. Continue IV Levaquin (day 4). Blood cultures no growth thus far. (3) Enterovesical fistula: Onset Date: Unknown Code(s): N32.1 - Vesicointestinal fistula Status: Acute Assessment and Plan: Patient presented to his urologist at [facility] for evaluation of pneumaturia. Outpatient CT was ordered but patient developed fevers and presented here. 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 GI and urology consulted - appreciate input. Had colonoscopy and cystoscopy this morning by Dr Huang and Dr Jay, respectively. Clear liquid diet. Recommended general surgery consult - discussed with Dr Delgado. He has offered sigmoid resection planned for Friday afternoon. Added flagyl due to recent diverticulitis. (4) Renal mass, right: Code(s): N28.89 - Other specified disorders of kidney and ureter Status: Acute Assessment and Plan: CT abd/pel demonstrates 4.5 x 3.3cm mass of the right kidney concerning for renal cell carcinoma. This is a new finding. Urology following. Primary concern is to address the fistula situation and then further workup on the renal mass can be address on outpatient basis. Partial nephrectomy has been discussed. (5) Hypertension: Code(s): I10 - Essential (primary) hypertension Status: Chronic Assessment and Plan: Stable maintained on home losartan. Monitor BP and adjust treatment as needed. (6) Arrhythmia: Code(s): I49.9 - Cardiac arrhythmia, unspecified Status: Acute Assessment and Plan: EKG was repeated late this afternoon for perioperative risk assessment to compare to his EKG on arrival that showed possible atrial tachycardia. Repeat EKG shows atrial flutter/atrial tachycardia. Patient has no known history of arrhythmia. He is completely asymptomatic without chest pains, shortness of breath or palpitations and he was unaware of this. Unclear how long he has been in this rhythm. Appreciate cardiology evaluation for further recommendations of medical management and for perioperative risk assessment with surgery planned for Friday. Echocardiogram shows normal systolic function EF 55-60% without wall motion abnormalities with mild mitral regurg. Subjective Date/time seen: 04/21/21 1300 Interval history: Mr. Palmer is a pleasant 75yo M with history of hypertension and BPH who is seen in follow up for UTI and enterovesicular fistula, also found to have 4.5cm right renal mass. Noted to have atrial flutter by EKG. He is feeling well today. He denies abdominal pain or dysuria. He denies chest pain, palpitations or shortness of breath. Tolerating clear liquids. Seen ambulating independently in the hallways with his family. Review of Systems Review of Systems: All systems reviewed & are unremarkable except as noted in HPI and below Exam Narrative: General: Well-nourished male resting sitting up in bed in no acute distress. HEENT: Normocephalic, EOMI, oral mucosa moist. Cardiovascular: Rate and rhythm are regular. Respiratory: Lungs clear to auscultation bilaterally. Respirations even and non-labored. Tolerating room air.
--- NOTE | 2021-04-21 09:14 | WPDANESPN ---
Anes - Prog Note Post-Op Date/Time: 04/21/21 09:14 Cardiovascular status: normal Respiratory status: normal Airway patency: baseline Mental status: baseline Post-Op hydration status: normal Vital Signs: Last Vital Signs Temp 36.4 C 04/21/21 06:00 Pulse 80 04/21/21 08:00 Resp 18 04/21/21 06:00 BP 136/83 04/21/21 06:00 Pulse Ox 98 04/21/21 06:00 Pain Score (VAS): 3 I/O: Intake & Output 04/20/21 04/21/21 04/21/21 23:59 07:59 15:59 Intake Total 700 1300 600 Balance 700 1300 600 Laboratory Tests 04/21/21 05:18 04/21/21 05:18 04/21/21 04/21/21 05:18 05:18 WBC 8.9 RBC 3.72 L Hgb 10.8 L Hct 32.5 L MCV 87.4 MCH 29.0 MCHC 33.2 RDW 14.1 Plt Count 238 MPV 9.6 Immature Gran % (Auto) 1.0 H Neut % (Auto) 86.6 H Lymph % (Auto) 6.1 L [place] % (Auto) 5.2 Eos % (Auto) 0.9 Baso % (Auto) 0.2 Lymph # (Auto) 0.54 L [place] # (Auto) 0.5 Eos # (Auto) 0.1 Baso # (Auto) 0.0 Abs Immat Gran (auto) 0.09 H Absolute Neuts (auto) 7.7 H Absolute Nucleated RBC 0.0 Nucleated RBC % 0.0 Sodium 131 L Potassium 4.2 Chloride 105 Carbon Dioxide 19 L Anion Gap 7 L BUN 14 Creatinine 1.00 Estim Creat Clear Calc 58 Estimated GFR > 60 Glucose 92 Calcium 8.0 L Magnesium 2.0 Prealbumin Pending Microbiology 04/18/21 20:04 Urine Clean Catch Urine Culture - Final Klebsiella pnemoniae 04/18/21 19:12 Blood Blood Culture - Preliminary 04/18/21 18:54 Blood Blood Culture - Preliminary Post-procedural complaints: none Patient Feedback: Patient satisfied with anesthetic care.
--- NOTE | 2021-04-21 11:48 | PM.PNGS ---
Progress Note: A&P Assessment and Plan (1) Enterovesical fistula: Onset Date: Unknown Code(s): N32.1 - Vesicointestinal fistula Status: Acute Assessment and Plan: This is suspected to have occurred within the last 1-2 weeks. The patient did go through a course of antibiotics for suspected diverticulitis about 1 - [address] scan of the abdomen and pelvis on this admission suggested possible fistula between the midportion of the sigmoid colon where it lays against the dome of the bladder on the left side. This was confirmed by cystoscopy by Dr. Jay today. Also patient underwent a bowel prep and then colonoscopy which confirmed diverticuli without significant inflammation throughout the sigmoid, descending colon, and the transverse colon. He was found to have no polyps. He did have some internal hemorrhoids. I have discussed thoroughly with the patient and his the plan of a hand assisted laparoscopic sigmoid resection with takedown of the colovesical fistula. We would then try to do a stapled anastomosis of the proximal sigmoid or descending colon to the rectum. This would usually take 2-3 hours. I doubt whether I'll need to take down the splenic flexure but this is a small possibility. He was informed of the small possibility of the need for a diverting loop ileostomy if there is any problems with signs of leakage from the anastomosis once this accomplished. Since he was able to have a bowel prep I think it is reasonable to proceed with this the near future. I will see if we can get this on for this coming Friday.( I scheduled it late today) In the interval Let's keep him on clear liquids to keep the colon Clean other than allowing him some surgical Ensure 3 times a day over the next few days. I will do a modified colon prep on Friday evening with the typical antibiotic bowel prep that night prior to surgery. This will depend on surgical schedule. I will have the wound care nurses Gely for ostomy on the right case we need a diverting ileostomy. Thank you for asking to see this pleasant patient and help with this difficult problem. (2) Diverticulitis of large intestine with complication: Onset Date: Unknown Code(s): K57.32 - Diverticulitis of large intestine without perforation or abscess without bleeding Status: Acute Assessment and Plan: Patient believes he has had at least 1 previous episode of diverticulitis requiring antibiotics. He has been to trying to stay on high-fiber side of his meals in order to prevent problems with hemorrhoids. He has not been having any specific bleeding after bowel movements and typically had 1 bowel movement per day on average prior to 1 month ago when he started having these recent problems. (3) Acute UTI: Code(s): N39.0 - Urinary tract infection, site not specified Status: Acute (4) Renal mass, right: Code(s): N28.89 - Other specified disorders of kidney and ureter Status: Acute (5) Hypertension: Code(s): I10 - Essential (primary) hypertension Status: Chronic (6) Atrial flutter by electrocardiogram: Onset Date: Unknown Code(s): I48.92 - Unspecified atrial flutter Status: Acute Assessment and Plan: Cardiology is consulting today. However, I discussed this with Dr. Estrada and he believes that the patient probably has is chronically and probably will be okay for our planned surgery on Friday. Additional Plan Modified bowel prep with antibiotics to begin tomorrow at noon. Subjective Subjective Date/Time Seen: 04/21/21 11:48 Patient reports: no new complaints Interval history: Still noticing some pneumaturia. Has frequency of urination but has had this a long time with his history of BPH. Tolerating clear liquids well along with the surgery in sure supplement. Review of Systems Constitutional: Constitutional: Reports no additional constitutional complaints E
[2021-04-21] MEDS: SODIUM CHLORIDE 0.9% IV 1,000 ML 75 ML IV CONT (13:03)
--- NOTE | 2021-04-21 14:09 | PM.CNCAR ---
Assessment and Plan Additional Plan 75-year-old man with a asymptomatic atrial flutter of unknown chronicity. He is cardiac physical exam other than the rhythm irregularity is unremarkable. Echocardiogram was appropriately done as he is going to have some significant surgery on Friday. As long as that shows no significant on suspected pathology he should be able to go to the operating room for this non elective operation without further cardiac testing or significantly increased risk. Following surgery when it is okay with the Surgical Service CC be systemically anticoagulated and I spoke to the patient his about that indication. Thank you for asking me to see this nice gentleman and I will follow him with you during this hospitalization Zak Rizvi MD [facility] History of Present Illness History of Present Illness Consult date/time: Date of service:04/21/21 14:09 Reason For Visit: Sepsis,UTI,Enterovesicular Fistula,Rt Kidney Mass Narrative: This is a very pleasant 75-year-old man I am seeing at the request of the Surgical service for preoperative cardiac risk assessment prior to surgery that is scheduled for Friday. the patient has no prior knowledge of any sort of cardiac problem in the past he sees a primary care physician in [place] with whom I am not familiar. In any event he presented to this [facility] emergency room and was admitted a few days ago because of symptoms of fever and air coming out of his penis. He recognized this is distinctly abnormal and he has been found to have diverticulosis of the colon with a colovesical fistula. Surgery to repair this has been scheduled for Friday. Although patient is in the hospital it has been noticed he is in atrial flutter. His initial ECG demonstrated atrial flutter and this arrhythmia has not changed since he has been in the hospital. He is not aware of any sense of tachycardia or palpitations. Despite being in atrial flutter he is not tachycardic indicating evidence of some underlying AV node dysfunction. He has a history of hypertension and dyslipidemia and takes medication for that he is not taking any medications that would affect AV node conduction. His atrial flutter appears to be typical but somewhat slower than normal and with that he is totally asymptomatic. He can't remember if and when he might have an EKG done by his physician and if so those records are not available in the [facility] chart in any event. An echocardiogram was ordered by the hospital staff it was done this morning and has yet to be read at the time of this dictation. He denies any symptoms of exertional nature such as chest pain shortness of breath he is not experiencing orthopnea PND or accumulating edema. He has never had a syncopal episode. Review of Systems Constitutional: Constitutional: Reports as per HPI and Reports no additional constitutional complaints Eyes: Eyes: Reports no additional eye complaints ENT: Reports system reviewed and no additional complaints, except as documented Cardiovascular: Cardiovascular: Reports no additional cardiovascular complaints Respiratory: Respiratory: Reports no additional respiratory complaints Gastrointestinal: Gastrointestinal: Reports no additional gastrointestinal complaints Genitourinary: Genitourinary: Reports as per HPI Musculoskeletal: Musculoskeletal: Reports no additional musculoskeletal complaints Integumentary/Breasts: Skin/Breast: Reports system reviewed and no additional complaints, except as docu Neurologic: Reports system reviewed and no additional complaints, except as documented Endocrine: Endocrine: Reports no additional endocrine complaints Hematologic/Lymphatic: Hematologic/Lymphatic: Reports no additional hematologic/lymphatic complaints Allergic/Immunologic: Allergic/Immunologic: Reports no additional allergic/immunologic complaints [facility] Past Medical History Medical History (Reviewed 04/20/21 @ 15:44 by Colby
[2021-04-21] MEDS: ATORVASTATIN 20 MG TABLET PO (21:41)
[2021-04-22] VITALS (12 sets, daily range): BP systolic 112–149; BP diastolic 74–85; PULSE 72–94; RESP 14–20; TEMP 36.3–38.5; O2SAT 95–99
[2021-04-22] MEDS: SODIUM CHLORIDE 0.9% IV 1,000 ML 75 ML IV CONT ×2 (02:10→23:45)
[2021-04-22] MEDS: metroNIDAZOLE 250 MG TABLET 500 MG PO ×3 (05:26→21:00)
[2021-04-22] MEDS: MAGNESIUM OXIDE 400 MG TABLET PO ×2 (08:55→17:56)
[2021-04-22] MEDS: PANTOPRAZOLE 40 MG TABLET PO (08:55)
[2021-04-22] MEDS: LOSARTAN POTASSIUM 50 MG TABLET PO (08:55)
[2021-04-22] MEDS: TAMSULOSIN HCL 0.4 MG CAPSULE PO (08:56)
[2021-04-22] MEDS: FINASTERIDE 5 MG TABLET PO (08:56)
[2021-04-22] MEDS: ASPIRIN 81 MG CHEWABLE TABLET PO (10:09)
[2021-04-22] MEDS: ERYTHROMYCIN 250 MG TABLET 1000 MG PO ×3 (12:04→20:53)
[2021-04-22] MEDS: NEOMYCIN SULFATE 500 MG TAB 1000 MG PO ×3 (12:04→20:53)
--- NOTE | 2021-04-22 14:30 | PM.IMPN ---
Progress Note: A&P Assessment and Plan (1) Sepsis: Code(s): A41.9 - Sepsis, unspecified organism Status: Acute Assessment and Plan: Evident on arrival with fever, tachycardia, leukocytosis. Suspected source is UTI vs. GI. Continue Levaquin and flagyl. Monitor cultures. Monitor vital signs and urine output. (2) Acute UTI: Code(s): N39.0 - Urinary tract infection, site not specified Status: Acute Assessment and Plan: Urine culture grew Klebsiella. Continue IV Levaquin (day 5). Blood cultures no growth thus far. (3) Enterovesical fistula: Onset Date: Unknown Code(s): N32.1 - Vesicointestinal fistula Status: Acute Assessment and Plan: Patient presented to his urologist at [facility] for evaluation of pneumaturia. Outpatient CT was ordered but patient developed fevers and presented here. 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 GI and urology consulted - appreciate input. Had colonoscopy and cystoscopy 04/[address] Huang and Dr Jay, respectively. Clear liquid diet. Appreciate general surgery consult - discussed with Dr Delgado. He has offered sigmoid resection planned for Friday afternoon. Continue flagyl (day 2) due to recent diverticulitis. (4) Renal mass, right: Code(s): N28.89 - Other specified disorders of kidney and ureter Status: Acute Assessment and Plan: CT abd/pel demonstrates 4.5 x 3.3cm mass of the right kidney concerning for renal cell carcinoma. This is a new finding. Urology following. Primary concern is to address the fistula situation and then further workup on the renal mass can be addressed on outpatient basis. Partial nephrectomy has been discussed. (5) Hypertension: Code(s): I10 - Essential (primary) hypertension Status: Chronic Assessment and Plan: Stable maintained on home losartan. Monitor BP and adjust treatment as needed. (6) Arrhythmia: Code(s): I49.9 - Cardiac arrhythmia, unspecified Status: Acute Assessment and Plan: EKG was repeated 04/20 for perioperative risk assessment to compare to his EKG on arrival that showed atrial flutter. Patient has no known history of arrhythmia. He is completely asymptomatic without chest pains, shortness of breath or palpitations and he was unaware of this. Unclear how long he has been in this rhythm. Appreciate cardiology evaluation for further recommendations of medical management and for perioperative risk assessment with surgery planned for tomorrow afternoon. Echocardiogram shows normal systolic function EF 55-60% without wall motion abnormalities with mild mitral regurg. Subjective Date/time seen: 04/22/21 1330 Interval history: Mr. Palmer is a pleasant 75yo M with history of hypertension and BPH who is seen in follow up for UTI and enterovesicular fistula. He was also incidentally found to have 4.5cm right renal mass and atrial flutter. He is feeling well today. He denies abdominal pain or dysuria. He denies chest pain, palpitations or shortness of breath. Tolerating clear liquids. Seen ambulating independently in the hallways with his family. Offers no complaints. Care plan discussed. Review of Systems Review of Systems: All systems reviewed & are unremarkable except as noted in HPI and below Exam Narrative: General: Well-nourished male resting sitting up in bed in no acute distress. HEENT: Normocephalic, EOMI, oral mucosa moist. Cardiovascular: Rate and rhythm are regular. Respiratory: Lungs clear to auscultation bilaterally. Respirations even and non-labored. Tolerating room air
--- NOTE | 2021-04-22 14:35 | PC.NURSE ---
patient showering at this time. using hibiclens soap for torso. verbalizes understanding of use of hibiclens
[2021-04-22] MEDS: MAGNESIUM CITRATE 300 ML BTL PO (15:16)
[2021-04-22] MEDS: ACETAMINOPHEN 325 MG TABLET 650 MG PO (17:55)
[2021-04-22] MEDS: ATORVASTATIN 20 MG TABLET PO (20:53)
--- NOTE | 2021-04-22 23:20 | PC.NURSE ---
Patient was transferred to 2 Medical Room 245 by wheelchair at 2300. His personal belongings and medical chart were sent with the patient.
[2021-04-23] VITALS (20 sets, daily range): BP systolic 109–148; BP diastolic 72–86; PULSE 70–137; RESP 12–20; TEMP 36.2–37.1; O2SAT 94–100
--- NOTE | 2021-04-23 00:10 | PM.PNGS ---
Progress Note: A&P Assessment and Plan (1) Enterovesical fistula: Onset Date: Unknown Code(s): N32.1 - Vesicointestinal fistula Status: Acute Assessment and Plan: This is suspected to have occurred within the last 1-2 weeks. The patient did go through a course of antibiotics for suspected diverticulitis about 1 - [address] scan of the abdomen and pelvis on this admission suggested possible fistula between the midportion of the sigmoid colon where it lays against the dome of the bladder on the left side. This was confirmed by cystoscopy by Dr. Jay today. Also patient underwent a bowel prep and then colonoscopy which confirmed diverticuli without significant inflammation throughout the sigmoid, descending colon, and the transverse colon. He was found to have no polyps. He did have some internal hemorrhoids. I have discussed thoroughly with the patient and his the plan of a hand assisted laparoscopic sigmoid resection with takedown of the colovesical fistula. We would then try to do a stapled anastomosis of the proximal sigmoid or descending colon to the rectum. This would usually take 2-3 hours. I doubt whether I'll need to take down the splenic flexure but this is a small possibility. He was informed of the small possibility of the need for a diverting loop ileostomy if there is any problems with signs of leakage from the anastomosis once this accomplished. Since he was able to have a bowel prep I think it is reasonable to proceed with this the near future. I will see if we can get this on for this coming Friday.( I scheduled it late today) In the interval Let's keep him on clear liquids to keep the colon Clean other than allowing him some surgical Ensure 3 times a day over the next few days. I will do a modified colon prep on Friday evening with the typical antibiotic bowel prep that night prior to surgery. This will depend on surgical schedule. I will have the wound care nurses Gely for ostomy on the right case we need a diverting ileostomy. Thank you for asking to see this pleasant patient and help with this difficult problem. (2) Diverticulitis of large intestine with complication: Onset Date: Unknown Code(s): K57.32 - Diverticulitis of large intestine without perforation or abscess without bleeding Status: Acute Assessment and Plan: Patient believes he has had at least 1 previous episode of diverticulitis requiring antibiotics. He has been to trying to stay on high-fiber side of his meals in order to prevent problems with hemorrhoids. He has not been having any specific bleeding after bowel movements and typically had 1 bowel movement per day on average prior to 1 month ago when he started having these recent problems. (3) Acute UTI: Code(s): N39.0 - Urinary tract infection, site not specified Status: Acute Assessment and Plan: This is because of his fistula and will be recurrent unless we take down the fistula which we are planning to do tomorrow. (4) Renal mass, right: Code(s): N28.89 - Other specified disorders of kidney and ureter Status: Acute (5) Hypertension: Code(s): I10 - Essential (primary) hypertension Status: Chronic (6) Atrial flutter by electrocardiogram: Onset Date: Unknown Code(s): I48.92 - Unspecified atrial flutter Status: Acute Assessment and Plan: Cardiology is consulting today. However, I discussed this with Dr. Estrada and he believes that the patient probably has is chronically and probably will be okay for our planned surgery on Friday. Subjective Subjective Date/Time Seen: 04/23/21 00:10 Late entry for 04/22/2021 ( patient seen approximately 11:00 a.m. Patient is sitting up in the chair. I answered all his questions about the upcoming surgery. We planned for him to do a bowel prep with Mag citrate and 2 fleets enemas. All questions were answered and he is
[2021-04-23] MEDS: METOPROLOL TARTRATE 12.5 MG TABLET PO ×3 (04:44→20:50)
[2021-04-23 06:21] LABS: Basophils Percent Auto 0.4 % (0.2-1.2); Eosinophils Percent Auto 0.3 % (0-4.4); Hematocrit 31.7 % (42.0-52.0); Hemoglobin 10.8 g/dL (14.0-18.0); Immature Granulocyte Absolute 0.07 K/mm3 (0.00-0.031); Immature Granulocyte Percent A 0.6 % (0-0.5); Lymphocytes Absolute Auto 0.75 K/mm3 (0.9-3.2); Lymphocytes Percent Auto 6.6 % (18.3-44.2); Mean Corpuscular HGB Conc 34.1 g/dl (32-36); Mean Corpuscular Hemoglobin 29.2 pg (26-34); Mean Corpuscular Volume 85.7 fl (80-100); Mean Platelet Volume 9.6 fl (7.4-10.4); Monocytes Absolute Auto 1.3 K/mm3 (0.1-0.6); Monocytes Percent Auto 11.4 % (2.6-8.5); Neutrophils Absolute Auto 9.2 K/mm3 (1.3-6.7); Neutrophils Percent Auto 80.7 % (45.5-73.1); Platelet Count Result 279 k/mm3 (150-375); Red Cell Distribution Width 13.9 % (11.5-14.5); White Blood Count 11.4 K/mm3 (4.5-10.0)
[2021-04-23] MEDS: metroNIDAZOLE 250 MG TABLET 500 MG PO (06:35)
[2021-04-23 06:44] LABS: Alanine Aminotransferase 27 U/L (4-50); Albumin Level 2.6 g/dL (3.5-5.1); Alkaline Phosphatase 113 U/L (38-126); Anion Gap 8 mmol/L (8-16); Aspartate Amino Transferase 24 U/L (17-59); Bilirubin,Total 0.5 mg/dL (0.2-1.3); Blood Urea Nitrogen 13 mg/dL (9-20); Calcium 8.2 mg/dL (8.4-10.2); Carbon Dioxide 20 mmol/L (22-30); Chloride 106 mmol/L (98-107); Estimated CRCL calculation 58 ml/min; Estimated Glomerular Filt Rate > 60; Glucose 100 mg/dL (65-110); Magnesium 1.9 mg/dL (1.6-2.3); Potassium 4.2 mmol/L (3.4-5.0); Sodium 134 mmol/L (137-145)
[2021-04-23] MEDS: PANTOPRAZOLE 40 MG TABLET PO (08:37)
[2021-04-23] MEDS: LOSARTAN POTASSIUM 50 MG TABLET PO (08:37)
--- NOTE | 2021-04-23 08:40 | PCWOUND ---
WOCN NOTE received consult to purnima patient's right side of abdomen for possible ostomy marking. Best area marked with black X on right side, applied tegaderm to skin at 0820. Will follow up with patient tomorrow.
--- NOTE | 2021-04-23 09:21 | WPDHPUPDATE1 ---
History and Physical Update Update Date/Time: 04/23/21 09:21 History and Physical has been reviewed, including an updated exam of the patient. There are changes in the patient's condition. He has completed his modified bowel problem and his antibiotic pills. He had significant stooling overnight after the Mag citrate. Risks, benefits, and alternatives have been discussed and questions answered. Patient agrees to proceed with procedure.
[2021-04-23] MEDS: CHLORHEXIDINE GLUCONATE 4% SOL 120 ML BTL 1 APPLIC TOPICAL (09:33)
--- NOTE | 2021-04-23 11:57 | PM.IMPN ---
Progress Note: A&P Assessment and Plan (1) Sepsis: Code(s): A41.9 - Sepsis, unspecified organism Status: Acute Assessment and Plan: Evident on arrival with fever, tachycardia, leukocytosis. Suspected source is UTI vs. GI. Continue Levaquin and flagyl. Monitor cultures. Monitor vital signs and urine output. (2) Acute UTI: Code(s): N39.0 - Urinary tract infection, site not specified Status: Acute Assessment and Plan: Urine culture grew Klebsiella. Continue IV Levaquin (day 6). Blood cultures no growth thus far. (3) Enterovesical fistula: Onset Date: Unknown Code(s): N32.1 - Vesicointestinal fistula Status: Acute Assessment and Plan: Patient presented to his urologist at [facility] for evaluation of pneumaturia. Outpatient CT was ordered but patient developed fevers and presented here. 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 GI and urology consulted - appreciate input. Had colonoscopy and cystoscopy 04/[address] Huang and Dr Jay, respectively. Appreciate general surgery input. He is headed for laparoscopyic sigmoid resection this afternoon. Continue flagyl (day 3) due to recent diverticulitis. (4) Renal mass, right: Code(s): N28.89 - Other specified disorders of kidney and ureter Status: Acute Assessment and Plan: CT abd/pel demonstrates 4.5 x 3.3cm mass of the right kidney concerning for renal cell carcinoma. This is a new finding. Urology following. Primary concern is to address the fistula situation and then further workup on the renal mass can be addressed on outpatient basis. Partial nephrectomy has been discussed. (5) Hypertension: Code(s): I10 - Essential (primary) hypertension Status: Chronic Assessment and Plan: Stable maintained on home losartan. Monitor BP and adjust treatment as needed. (6) Arrhythmia: Code(s): I49.9 - Cardiac arrhythmia, unspecified Status: Acute Assessment and Plan: EKG was repeated 04/20 for perioperative risk assessment to compare to his EKG on arrival that showed atrial flutter. Patient has no known history of arrhythmia. He is completely asymptomatic without chest pains, shortness of breath or palpitations and he was unaware of this. Unclear how long he has been in this rhythm. Appreciate cardiology evaluation. Echocardiogram shows normal systolic function EF 55-60% without wall motion abnormalities with mild mitral regurg. Subjective Date/time seen: 04/23/21 11:15 Interval history: Mr. Palmer is a pleasant 75yo M with history of hypertension and BPH who is seen in follow up for UTI and enterovesicular fistula. He was also incidentally found to have 4.5cm right renal mass and atrial flutter. He is seen this morning just before heading down for surgery. He is feeling okay this morning but notes he wasn't feeling well last evening when he had a fever but otherwise doing okay. Was up most of the night due to bowel movements after an enema. He denies abdominal pain, nausea or vomiting. No chest pain, palpitations, or shortness of breath. Review of Systems Review of Systems: All systems reviewed & are unremarkable except as noted in HPI and below Exam Narrative: General: Well-nourished male resting sitting up in bed in no acute distress. HEENT: Normocephalic, EOMI, oral mucosa moist. Cardiovascular: Rate and rhythm are regular. Respiratory: Lungs clear to auscultation bilaterally. Respirations even and non-labored. Tolerating room air. Abdomen: Soft, non-tender, non-distended, bowel sounds present. Extremities:
[2021-04-23] MEDS: LACTATED RINGERS 1,000 ML 30 ML IV CONT ×2 (12:00→17:21)
[2021-04-23] MEDS: KETOROLAC 15 MG/ML VIAL (*BKC) IV PUSH (12:01)
[2021-04-23] MEDS: ALVIMOPAN 12 MG CAPSULE PO ×2 (12:01→20:48)
--- NOTE | 2021-04-23 12:01 | WPDANESEPPF ---
Anes - Initial Pre Proc Eval Procedure: Operation Date: 04/20/21 12:00 Proposed Procedures p Colonoscopy - Everette Huang MD s Flexible Cystoscopy - Aric Jay MD Operation Date: 04/23/21 13:00 Proposed Procedures p Hand Assisted Laparoscopic Sigmoid Colectomy With Takedown Of Colovesical Fistula,With Anastomosis - Brennon Delgado MD Date/Time: 04/23/21 12:01 Surgeon: Kaylen Estes, PAC Pre Op Diagnosis: Sepsis,UTI,Enterovesicular Fistula,Rt Kidney Mass Patient Data Age: 75 Gender: M Height: 1.78 m Weight: 88 kg Last Vital Signs Temp 36.7 C 04/23/21 05:52 Pulse 76 04/23/21 08:11 Resp 16 04/23/21 05:52 BP 148/86 H 04/23/21 05:52 Pulse Ox 97 04/23/21 05:52 Allergies Allergy/AdvReac Type Severity Reaction Status Date / Time ORION Inhibitors Allergy Rash Verified 04/20/21 11:00 Penicillins Allergy Rash Verified 04/20/21 11:00 Home Medications Medication Instructions Recorded Confirmed Type aspirin 81 mg PO DAILY 04/18/21 04/18/21 History atorvastatin 20 mg PO HS 04/18/21 04/18/21 History losartan 50 mg PO DAILY 04/18/21 04/18/21 History omeprazole 20 mg PO DAILY 04/18/21 04/18/21 History tamsulosin 0.4 mg PO DAILY 04/18/21 04/18/21 History Laboratory Tests 04/23/21 04/23/21 05:34 05:34 WBC 11.4 K/mm3 H K/mm3 (4.5-10.0) RBC 3.70 M/mm3 L M/mm3 (4.6-6.20) Hgb 10.8 g/dL L g/dL (14.0-18.0) Hct 31.7 % L % (42.0-52.0) MCV 85.7 fl fl (80-100) MCH 29.2 pg pg (26-34) MCHC 34.1 g/dl g/dl (32-36) RDW 13.9 % % (11.5-14.5) Plt Count 279 k/mm3 k/mm3 (150-375) MPV 9.6 fl fl (7.4-10.4) Immature Gran % (Auto) 0.6 % H % (0-0.5) Neut % (Auto) 80.7 % H % (45.5-73.1) Lymph % (Auto) 6.6 % L % (18.3-44.2) Wallace % (Auto) 11.4 % H % (2.6-8.5) Eos % (Auto) 0.3 % % (0-4.4) Baso % (Auto) 0.4 % % (0.2-1.2) Lymph # (Auto) 0.75 K/mm3 L K/mm3 (0.9-3.2) Wallace # (Auto) 1.3 K/mm3 H K/mm3 (0.1-0.6) Eos # (Auto) 0.0 K/mm3 K/mm3 (0-0.3) Baso # (Auto) 0.0 K/mm3 K/mm3 (0.0-0.1) Abs Immat Gran (auto) 0.07 K/mm3 H K/mm3 (0.00-0.031) Absolute Neuts (auto) 9.2 K/mm3 H K/mm3 (1.3-6.7) Absolute Nucleated RBC 0.0 K/mm3 K/mm3 (0.0-0.012) Nucleated RBC % 0.0 % % (0.0-0.2) Sodium 134 mmol/L L mmol/L (137-145) Potassium 4.2 mmol/L mmol/L (3.4-5.0) Chloride 106 mmol/L mmol/L (98-107) Carbon Dioxide 20 mmol/L L mmol/L (22-30) Anion Gap 8 mmol/L mmol/L (8-16) BUN 13 mg/dL mg/dL (9-20) Creatinine 1.00 mg/dL mg/dL (0.7-1.3) Estim Creat Clear Calc 58 ml/min ml/min Estimated GFR > 60 (59 - ) Glucose 100 mg/dL mg/dL (65-110) Calcium 8.2 mg/dL L mg/dL (8.4-10.2) Magnesium 1.9 mg/dL mg/dL (1.6-2.3) Total Bilirubin 0.5 mg/dL mg/dL (0.2-1.3) AST 24 U/L U/L (17-59) ALT 27 U/L U/L (4-50) Alkaline Phosphatase 113 U/L U/L (38-126) Total Protein 5.0 g/dL L g/dL (6.3-8.2) Albumin 2.6 g/dL L g/dL (3.5-5.1) Other Studies: Admit Date: 04/19/2021 Exam Type: CA echo doppler color flow Indications - afib aflutter /pre op Summary 1. Complete two-dimensional, color flow and Doppler transthoracic echocardiogram is performed. 2. Left ventricular chamber dimension is normal. 3. Left ventricular systolic function is normal, estimated at 55-60%. 4. There is mild mitral valve regurgitation. 5. Normal atrial dimensions. Patient hx anesthesia problems: none Family hx anesthesia problems: none [facility] Past Medical History Medical History (Updated 04/23/21 @ 12:04 by Omar Valencia MD) Atrial flutter by electrocardiogram (Unknown) Diverticulitis of large intestine with complication (Unknown) Enterovesical fistula (Unknown) Hypertension Fa
[2021-04-23] MEDS: ACETAMINOPHEN 500 MG TABLET 1000 MG PO (12:03)
[2021-04-23] MEDS: ceFAZolin 2 GM/D5W 50 ML 2 GM/50 ML BAG IVPB (12:36)
[2021-04-23] MEDS: BUPIVACAINE/EPINEPHRINE 0.25% 10 ML VIAL 30 ML INFILTRATE (13:35)
[2021-04-23] MEDS: metroNIDAZOLE 500 MG/ISO 100ML 500 MG/100 ML BAG 100 MG IVPB ×2 (14:00→22:12)
--- NOTE | 2021-04-23 18:07 | W.PM.PROC2 ---
Procedure Note - Detailed Date of Procedure 04/25/21 Pre-op Diagnosis UTI, Enterovesicular Fistula sigmoid diverticulitis Post-op Diagnosis other (1. sigmoid diverticulitis with enterovesical fistula. 2. incidental discovery of incarcerated (fat) small left inguinal hernia indirect. ) Procedure Performed Hand assisted laparoscopic left colon resection (Sigmoid). takedown of enterocolic vesical fistula with repair of dome of bladder with 3 sutures. Surgeon Brennon Delgado MD Control Specialist Marya NAVA., [employer] Worker Anesthesia general Indications see preoperative consultation: Patient has enterovesical fistula causing UTIs and pneumaturia. Findings there was a dense connection between the lateral wall of the sigmoid colon about mid sigmoid to the left upper dome of the bladder. Description of Procedure Hand assited Laparoscopic left colectomy with anastamosis The patient was seen in the preop area. The suprapubic area marked for the site of possible hand assist incision. I again went over the risks, benefits, and possible complications of surgery with the patient and family. We went over the results of the prep. I confirmed the patient had received Entereg. Following this the patient was brought to the operating room and placed on the operating table and secured to the table with a foster bag padding the back. The patient was placed in the low lithotomy position with the legs in the Cornelius stirrups. Steward catheter was then placed. An OG tube was then placed. Following this 2 L of NS irrigant was used to irrigate out the rectum using a Malenkaut catheter. Betadine was then infused into this catheter using approximately 500 cc. This was allowed to run back out. The catheter was then left in place in the distal rectum. Following this the abdomen was prepped and draped in usual sterile fashion sterile fashion. The perineum was prepped with Betadine. An under the buttocks and leg drapes were applied followed by 4 towels and then the laparotomy / laparoscopy drape applied. This exposed nicely the entire abdomen. Following this time-out was performed with the OR staff. This confirmed patient and site of proposed surgery as the abdomen. Following this local anesthetic was infiltrated into a transverse incision marked out 2 fingerbreadths above the level of the pubic bone. This was centered on the midline. It was approximately 8.5 cm in length. Following this an incision was made and carried down to the fascia overlying the rectus sheath in this area. The anterior rectus sheath was incised the length of this incision transversely. Following this three Mandy's were placed on the upper side of the cut edge of the rectus. I then carefully dissected the rectus fascia off the underlying rectus muscles up to about assisted from the incision to the umbilicus. This nicely exposed the fatty midline. Following this I also placed the Allis's on the fascia inferiorly and dissected approximately 3 cm inferiorly underneath the rectus sheath. Following this we tented up the midline fat with two DeBakey forceps and carefully entered the midline under direct vision. I then put my finger in the peritoneum and incised the peritoneum cephalad and inferiorly about an 8 cm length. This was our 1st entry into the abdomen and there were significant adhesions under this incision. Therefore, I did a little dissection and found that a loop of the sigmoid colon was densely adhered to the dome of the bladder just inferior to the edge of our hand port ring. Was able to pinch on this a little bit and start taking it down some but I decided to go ahead put the other ports in and look at it carefully from inside before doing anything further. I swept my finger completely circumferentially underneath the abdominal wall and there were no significant adhesions Superiorly however, there were significant adhesions between the sidewall of the sigmoid colon and the dome of
[2021-04-23] MEDS: FINASTERIDE 5 MG TABLET PO (18:34)
[2021-04-23] MEDS: ASPIRIN 81 MG CHEWABLE TABLET PO (18:34)
[2021-04-23] MEDS: TAMSULOSIN HCL 0.4 MG CAPSULE PO (18:34)
[2021-04-23] MEDS: MAGNESIUM OXIDE 400 MG TABLET PO (18:38)
[2021-04-23] MEDS: LACTATED RINGERS 1,000 ML 100 ML IV CONT (18:51)
--- NOTE | 2021-04-23 19:01 | PC.NURSE ---
Pt went to OR at 1135 and returned from OR per bed 1825 04/23/21
[2021-04-23 19:56] LABS: Prealbumin 8.6 mg/dL (17.6-36.0)
[2021-04-23] MEDS: HYDROcodone/acetaminophen (*CRX) 5-325 MG TABLET 1 TAB PO (20:48)
[2021-04-23] MEDS: ATORVASTATIN 20 MG TABLET PO (20:51)
[2021-04-23] MEDS: GABAPENTIN 300 MG CAPSULE 600 MG PO (20:52)
[2021-04-24] VITALS (10 sets, daily range): BP systolic 124–157; BP diastolic 73–87; PULSE 75–102; RESP 16–20; TEMP 36.2–36.7; O2SAT 97–99
[2021-04-24] MEDS: LACTATED RINGERS 1,000 ML 100 ML IV CONT (05:06)
[2021-04-24] MEDS: metroNIDAZOLE 500 MG/ISO 100ML 500 MG/100 ML BAG 100 MG IVPB ×3 (05:54→22:51)
[2021-04-24 06:05] LABS: Basophils Percent Auto 0.2 % (0.2-1.2); Hematocrit 31.2 % (42.0-52.0); Hemoglobin 10.4 g/dL (14.0-18.0); Immature Granulocyte Percent A 0.8 % (0-0.5); Lymphocytes Absolute Auto 0.65 K/mm3 (0.9-3.2); Lymphocytes Percent Auto 5.2 % (18.3-44.2); Mean Corpuscular HGB Conc 33.3 g/dl (32-36); Mean Corpuscular Hemoglobin 29.1 pg (26-34); Mean Corpuscular Volume 87.4 fl (80-100); Mean Platelet Volume 9.5 fl (7.4-10.4); Monocytes Absolute Auto 0.7 K/mm3 (0.1-0.6); Monocytes Percent Auto 5.7 % (2.6-8.5); Neutrophils Percent Auto 88.1 % (45.5-73.1); Platelet Count Result 302 k/mm3 (150-375); Red Blood Count 3.57 M/mm3 (4.6-6.20); Red Cell Distribution Width 14.3 % (11.5-14.5); White Blood Count 12.5 K/mm3 (4.5-10.0)
[2021-04-24 06:20] LABS: Anion Gap 10 mmol/L (8-16); Blood Urea Nitrogen 18 mg/dL (9-20); Calcium 8.1 mg/dL (8.4-10.2); Carbon Dioxide 18 mmol/L (22-30); Chloride 105 mmol/L (98-107); Estimated CRCL calculation 61 ml/min; Estimated Glomerular Filt Rate > 60; Glucose 114 mg/dL (65-110); Magnesium 1.8 mg/dL (1.6-2.3); Potassium 4.4 mmol/L (3.4-5.0); Sodium 133 mmol/L (137-145)
--- NOTE | 2021-04-24 07:42 | WPDANESPN ---
Anes - Prog Note Post-Op Date/Time: 04/24/21 07:42 Cardiovascular status: normal Respiratory status: normal Airway patency: baseline Mental status: baseline Post-Op hydration status: normal Vital Signs: Last Vital Signs Temp 36.7 C 04/24/21 05:00 Pulse 76 04/24/21 05:00 Resp 18 04/24/21 05:00 BP 139/78 04/24/21 05:00 Pulse Ox 98 04/24/21 05:00 Pain Score (VAS): 10 I/O: Intake & Output 04/23/21 04/23/21 04/24/21 15:59 23:59 07:59 Intake Total 150 1250 2250 Output Total 45 380 Balance 150 1205 1870 Laboratory Tests 04/24/21 05:28 04/24/21 05:28 04/21/21 04/24/21 04/24/21 05:18 05:28 05:28 WBC 12.5 H RBC 3.57 L Hgb 10.4 L Hct 31.2 L MCV 87.4 MCH 29.1 MCHC 33.3 RDW 14.3 Plt Count 302 MPV 9.5 Immature Gran % (Auto) 0.8 H Neut % (Auto) 88.1 H Lymph % (Auto) 5.2 L [place] % (Auto) 5.7 Eos % (Auto) 0.0 Baso % (Auto) 0.2 Lymph # (Auto) 0.65 L [place] # (Auto) 0.7 H Eos # (Auto) 0.0 Baso # (Auto) 0.0 Abs Immat Gran (auto) 0.10 H Absolute Neuts (auto) 11.0 H Absolute Nucleated RBC 0.0 Nucleated RBC % 0.0 Sodium 133 L Potassium 4.4 Chloride 105 Carbon Dioxide 18 L Anion Gap 10 BUN 18 Creatinine 1.10 Estim Creat Clear Calc 61 Estimated GFR > 60 Glucose 114 H Calcium 8.1 L Magnesium 1.8 Prealbumin 8.6 L Post-procedural complaints: none Patient Feedback: Patient satisfied with anesthetic care.
[2021-04-24] MEDS: SODIUM CHLORIDE 0.9% IV 1,000 ML 100 ML IV CONT ×2 (07:56→20:31)
[2021-04-24] MEDS: METOPROLOL TARTRATE 12.5 MG TABLET PO ×2 (07:59→22:50)
[2021-04-24] MEDS: ALVIMOPAN 12 MG CAPSULE PO ×2 (07:59→22:50)
[2021-04-24] MEDS: ENOXAPARIN 40 MG/0.4 ML SYRINGE SUB-Q (07:59)
[2021-04-24] MEDS: LOSARTAN POTASSIUM 50 MG TABLET PO (07:59)
[2021-04-24] MEDS: TAMSULOSIN HCL 0.4 MG CAPSULE PO (08:00)
[2021-04-24] MEDS: MAGNESIUM OXIDE 400 MG TABLET PO ×2 (08:00→16:47)
[2021-04-24] MEDS: PANTOPRAZOLE 40 MG TABLET PO (08:00)
[2021-04-24] MEDS: FINASTERIDE 5 MG TABLET PO (08:00)
--- NOTE | 2021-04-24 08:32 | PM.PNGS ---
Progress Note: A&P Assessment and Plan (1) Diverticulitis of large intestine with complication: Onset Date: Unknown Code(s): K57.32 - Diverticulitis of large intestine without perforation or abscess without bleeding Status: Acute Assessment and Plan: Doing well postop day #1 status /post sigmoid resection with takedown of colovesical fistula. Will await return of bowel function. Patient doing well on Entereg in will continue sipping coffee tea or water until has a bowel movement. 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 We will leave the Steward catheter in for probably 7-10 days will discuss with Dr. Jay. (3) Arrhythmia: Code(s): I49.9 - Cardiac arrhythmia, unspecified Status: Acute Assessment and Plan: Discussed with Dr. carolyn watt and patient does not need monitoring. He probably has been in this rhythm and stable for some time. (4) BPH loc w urin obs/LUTS: Code(s): N40.1 - Benign prostatic hyperplasia with lower urinary tract symptoms Status: Acute Assessment and Plan: Will resume patient's finasteride and Flomax once he is able take pills again. (5) Acute UTI: Code(s): N39.0 - Urinary tract infection, site not specified Status: Acute (6) Hypertension: Code(s): I10 - Essential (primary) hypertension Status: Chronic Assessment and Plan: Okay to resume patient's oral anti hypertensives whenever Medicine feels appropriate as he is now sipping liquids. Additional Plan Continue antibiotics for now in view of the contamination of the bladder that he had. Probably needs 3-5 days of this but will check with Dr. Jay regarding his thoughts. For now okay to be on Ancef and metronidazole. Subjective Subjective Date/Time Seen: 04/24/21 08:32 Post Op day: 1 (Status post takedown of colovesical fistula.) Patient reports: no new complaints, still having pain and tolerating liquids well Interval history: patient denies flatus. He has not yet had a bowel movement. Complaining of some hard to describe pelvic pain. Otherwise doing well on current pain medication. Has been up walking several times. Review of Systems Constitutional: Constitutional: Reports no additional constitutional complaints ENT: Reports other (Mucous Membranes moist.) Cardiovascular: Cardiovascular: Denies dyspnea Respiratory: Respiratory: Denies pain on inspiration and Denies dyspnea Gastrointestinal: Gastrointestinal: Reports as per HPI Comments: Patient tolerating sips of liquids. Will keep him on this and Entereg until he has a bowel movement then begin advancing his diet. Genitourinary: Comments: Discussed Steward. Because of the urinary bladder repair will leave Steward in for 7 days or so. Musculoskeletal: Musculoskeletal: Reports other (No calf swelling or edema) Integumentary/Breasts: Skin/Breast: Reports system reviewed and no additional complaints, except as docu Exam Const: General: cooperative, no acute distress, alert and awake Orientation/consciousness: patient oriented x3 HENMT: Mouth: Yes moist mucous membranes Neck: Neck: normal visual inspection Chest: Chest palpation & inspection: normal inspection of the chest Resp: Effort & Inspection: normal respiratory effort Auscultation: clear to auscultation bilaterally Cardio: Jugular venous distension: no JVD Rate: regular rate Rhythm: regular rhythm GI: Rectal Exam: deferred Neuro: General: patient oriented x3 and moves all extremities Speech: normal speech Extrem: General: normal exam except as noted Psych: Mental Status: mental status grossly normal Speech and movement: Normal speech and movement present Affect: normal affect Thought content: Yes Normal thought content present Objective Data Vital Signs Taniya
[2021-04-24] MEDS: ASPIRIN 81 MG CHEWABLE TABLET PO (08:43)
--- NOTE | 2021-04-24 09:33 | PM.IMPN ---
Progress Note: A&P Assessment and Plan (1) Enterovesical fistula: Onset Date: Unknown Code(s): N32.1 - Vesicointestinal fistula Status: Acute Assessment and Plan: Patient presented to his urologist at [facility] for evaluation of pneumaturia. Outpatient CT was ordered but patient developed fevers and presented here. 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 GI and urology consulted - appreciate input. Had colonoscopy and cystoscopy 04/[address] Huang and Dr Jay, respectively. 04/23/21- Underwent sigmoid diverticulitis with enterovesical fistula. Incidental discovery of incarcerated (fat) small left inguinal hernia indirect. Continue flagyl (day 4) due to recent diverticulitis. Appreciate general surgery input. (2) Sepsis: Code(s): A41.9 - Sepsis, unspecified organism Status: Acute Assessment and Plan: Resolved. Evident on arrival with fever, tachycardia, leukocytosis. Suspected source is UTI vs. GI. Continue Levaquin and flagyl. Monitor cultures, negative to date. Monitor vital signs and urine output. (3) Acute UTI: Code(s): N39.0 - Urinary tract infection, site not specified Status: Acute Assessment and Plan: Urine culture grew Klebsiella. Continue IV Levaquin (day 7). Blood cultures no growth thus far. (4) Renal mass, right: Code(s): N28.89 - Other specified disorders of kidney and ureter Status: Acute Assessment and Plan: CT abd/pel demonstrates 4.5 x 3.3cm mass of the right kidney concerning for renal cell carcinoma. This is a new finding. Urology following. Primary concern is to address the fistula situation and then further workup on the renal mass can be addressed on outpatient basis. Partial nephrectomy has been discussed. (5) Hypertension: Code(s): I10 - Essential (primary) hypertension Status: Chronic Assessment and Plan: BP 139/78. Stable. Stable maintained on home losartan. Monitor BP and adjust treatment as needed. (6) Arrhythmia: Code(s): I49.9 - Cardiac arrhythmia, unspecified Status: Acute Assessment and Plan: EKG was repeated 04/20 for perioperative risk assessment to compare to his EKG on arrival that showed atrial flutter. Patient has no known history of arrhythmia. He is completely asymptomatic without chest pains, shortness of breath or palpitations and he was unaware of this. Unclear how long he has been in this rhythm. Appreciate cardiology evaluation. Echocardiogram shows normal systolic function EF 55-60% without wall motion abnormalities with mild mitral regurg. Time Spent With Patient Time with patient: 25 - 35 minutes Subjective Date/time seen: 04/24/21 09:33 Interval history: Mr. Palmer is a pleasant 75yo M with history of hypertension and BPH who is seen in follow up for UTI and enterovesicular fistula. He was also incidentally found to have 4.5cm right renal mass and atrial flutter. Date of service 04/24/2021: patient reports only slight abdominal discomfort at times, he denies have any gas movement or bowel movements this morning since his procedure yesterday. He is tolerating ice chips without any difficulty. Denies any nausea, vomiting, fever, chills, chest pain, shortness of breath, cough, leg swelling, calf pain or any other symptoms at this time. Review of Systems Review of Systems: All systems reviewed & are unremarkable except as noted in HPI and below Exam Narrative: General: 75-year-old man sitting up in the chair, finishing up with therapy. Appears comfortable. In no acute distress. Skin: No
[2021-04-24] MEDS: ATORVASTATIN 20 MG TABLET PO (22:50)
[2021-04-25] VITALS (11 sets, daily range): BP systolic 132–165; BP diastolic 53–97; PULSE 53–92; RESP 16–18; TEMP 35.8–37.1; O2SAT 95–97; BMI 30.5
[2021-04-25 05:38] LABS: Basophils Absolute Auto 0.1 K/mm3 (0.0-0.1); Basophils Percent Auto 0.6 % (0.2-1.2); Eosinophils Absolute Auto 0.1 K/mm3 (0-0.3); Eosinophils Percent Auto 0.9 % (0-4.4); Hematocrit 33.2 % (42.0-52.0); Hemoglobin 11.1 g/dL (14.0-18.0); Immature Granulocyte Absolute 0.06 K/mm3 (0.00-0.031); Immature Granulocyte Percent A 0.8 % (0-0.5); Lymphocytes Absolute Auto 1.19 K/mm3 (0.9-3.2); Lymphocytes Percent Auto 15.1 % (18.3-44.2); Mean Corpuscular HGB Conc 33.4 g/dl (32-36); Mean Corpuscular Hemoglobin 29.4 pg (26-34); Mean Corpuscular Volume 87.8 fl (80-100); Mean Platelet Volume 8.9 fl (7.4-10.4); Monocytes Absolute Auto 0.8 K/mm3 (0.1-0.6); Monocytes Percent Auto 10.4 % (2.6-8.5); Neutrophils Absolute Auto 5.7 K/mm3 (1.3-6.7); Neutrophils Percent Auto 72.2 % (45.5-73.1); Platelet Count Result 359 k/mm3 (150-375); Red Blood Count 3.78 M/mm3 (4.6-6.20); Red Cell Distribution Width 14.6 % (11.5-14.5); White Blood Count 7.9 K/mm3 (4.5-10.0)
[2021-04-25] MEDS: metroNIDAZOLE 500 MG/ISO 100ML 500 MG/100 ML BAG 100 MG IVPB ×3 (05:47→21:37)
[2021-04-25 05:55] LABS: Anion Gap 6 mmol/L (8-16); Blood Urea Nitrogen 17 mg/dL (9-20); Calcium 8.1 mg/dL (8.4-10.2); Carbon Dioxide 22 mmol/L (22-30); Chloride 103 mmol/L (98-107); Estimated CRCL calculation 60 ml/min; Estimated Glomerular Filt Rate > 60; Glucose 89 mg/dL (65-110); Potassium 4.2 mmol/L (3.4-5.0); Sodium 131 mmol/L (137-145)
[2021-04-25] MEDS: FAMOTIDINE 20 MG/2 ML VIAL IV PUSH (06:25)
--- NOTE | 2021-04-25 08:10 | PM.PNGS ---
Progress Note: A&P Assessment and Plan (1) Diverticulitis of large intestine with complication: Onset Date: Unknown Code(s): K57.32 - Diverticulitis of large intestine without perforation or abscess without bleeding Status: Acute Assessment and Plan: Doing well postop day #2 status /post sigmoid resection with takedown of colovesical fistula. Will await return of bowel function.( seems to be beginning) Patient doing well on Entereg in will advance to a clear liquid diet. 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 We will leave the Steward catheter in for probably 7-10 days will discuss with Dr. Jay. (3) Arrhythmia: Code(s): I49.9 - Cardiac arrhythmia, unspecified Status: Acute Assessment and Plan: Discussed with and patient does not need monitoring. He probably has been in this rhythm and stable for some time. Discusse with Geovanna (hospitialist) and we may start the anticoagulation that Dr Tomlinson recommended for this a day before his planned discharge to see how he tolerates it. (4) BPH loc w urin obs/LUTS: Code(s): N40.1 - Benign prostatic hyperplasia with lower urinary tract symptoms Status: Acute Assessment and Plan: Will resume patient's finasteride and Flomax once he is able take pills again. (5) Acute UTI: Code(s): N39.0 - Urinary tract infection, site not specified Status: Acute Assessment and Plan: pt still on antiboitic because of the fistula and bladder contamination assoc with it. (6) Hypertension: Code(s): I10 - Essential (primary) hypertension Status: Chronic Assessment and Plan: Okay to resume patient's oral anti hypertensives whenever Medicine feels appropriate as he is now sipping liquids. Additional Plan Continue antibiotics for now in view of the contamination of the bladder that he had. Probably needs 3-5 days of this but will check with Dr. Jay regarding his thoughts. For now okay to be on levaquin and metronidazole. Subjective Subjective Date/Time Seen: 04/25/21 08:10 Patient lying in bed when I entered the room. He has complained of some reflux symptoms. Nurse reports that hospitalist give a 1 time dose of an H2 rosalio this morning. I will increase his Protonix to b.i.d.. Patient did have 1 stool that was slightly bloody yesterday afternoon around 2 PM and has been passing gas since that time. He had a little bit of gas like pain in the right side the abdomen yesterday afternoon but this is now improved, and he just has a generalized discomfort in the lower abdomen. He did get up and walk more yesterday. Review of Systems Constitutional: Constitutional: Reports as per HPI, Reports no additional constitutional complaints and Denies headache(s) Eyes: Eyes: Denies loss of vision and Denies eye pain ENT: Reports Normal hearing present, Denies change in voice, Denies dizziness, Denies headache(s) and Reports other (Mucous Membranes moist.) Cardiovascular: Cardiovascular: Denies chest pain and Denies dyspnea Respiratory: Respiratory: Denies pain on inspiration, Denies dyspnea and Denies wheezing Gastrointestinal: Gastrointestinal: Reports as per HPI, Reports abdominal pain ( suprapubic prior to starting on antibiotics.), Denies constipation, Denies diarrhea, Denies loose stools and Denies nausea Genitourinary: Genitourinary: Reports as per HPI Musculoskeletal: Musculoskeletal: Denies back pain, Denies arthralgias and Reports other (No calf swelling or edema) Integumentary/Breasts: Skin/Breast: Reports system reviewed and no additional complaints, except as docu Neurologic: Reports Normal hearing present, Denies dizziness, Denies headache(s), Denies loss of vision and Denies memory loss Psychiatric: Psychiatric: Denies memory l
[2021-04-25] MEDS: MAG HYDROX/AL HYDROX/SIMETH 30 ML UDC PO (08:42)
[2021-04-25] MEDS: METOPROLOL TARTRATE 12.5 MG TABLET PO ×2 (08:43→11:56)
[2021-04-25] MEDS: ALVIMOPAN 12 MG CAPSULE PO ×2 (08:43→20:54)
[2021-04-25] MEDS: FINASTERIDE 5 MG TABLET PO (08:43)
[2021-04-25] MEDS: TAMSULOSIN HCL 0.4 MG CAPSULE PO (08:44)
[2021-04-25] MEDS: MAGNESIUM OXIDE 400 MG TABLET PO (08:44)
[2021-04-25] MEDS: ASPIRIN 81 MG CHEWABLE TABLET PO (08:44)
[2021-04-25] MEDS: ENOXAPARIN 40 MG/0.4 ML SYRINGE SUB-Q (08:44)
[2021-04-25] MEDS: SODIUM CHLORIDE 0.9% IV 1,000 ML 100 ML IV CONT (08:44)
[2021-04-25] MEDS: PANTOPRAZOLE 40 MG TABLET PO ×2 (08:44→20:54)
[2021-04-25] MEDS: LOSARTAN POTASSIUM 50 MG TABLET PO (08:45)
--- NOTE | 2021-04-25 10:06 | PM.IMPN ---
Progress Note: A&P Assessment and Plan (1) Enterovesical fistula: Onset Date: Unknown Code(s): N32.1 - Vesicointestinal fistula Status: Acute Assessment and Plan: Patient presented to his urologist at [facility] [place] for evaluation of pneumaturia. Outpatient CT was ordered but patient developed fevers and presented here. 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 GI and urology consulted - appreciate input. Had colonoscopy and cystoscopy 04/[address] Huang and Dr Jay, respectively. 04/23/21- Underwent sigmoid diverticulitis with enterovesical fistula. Incidental discovery of incarcerated (fat) small left inguinal hernia indirect. Continue flagyl and Levoquin (day #5) due to recent diverticulitis. Diet advanced by surgery to Clear Liquid diet. Appreciate general surgery input. (2) Sepsis: Code(s): A41.9 - Sepsis, unspecified organism Status: Acute Assessment and Plan: Resolved. Evident on arrival with fever, tachycardia, leukocytosis. Suspected source is UTI vs. GI. Continue Levaquin and flagyl. Monitor cultures, negative to date. Monitor vital signs and urine output. (3) Acute UTI: Code(s): N39.0 - Urinary tract infection, site not specified Status: Acute Assessment and Plan: Urine culture grew Klebsiella. Continue IV Levaquin (day 7). Blood cultures no growth thus far. (4) Renal mass, right: Code(s): N28.89 - Other specified disorders of kidney and ureter Status: Acute Assessment and Plan: CT abd/pel demonstrates 4.5 x 3.3cm mass of the right kidney concerning for renal cell carcinoma. This is a new finding. Urology following. Primary concern is to address the fistula situation and then further workup on the renal mass can be addressed on outpatient basis. Partial nephrectomy has been discussed. (5) Hypertension: Code(s): I10 - Essential (primary) hypertension Status: Chronic Assessment and Plan: BP 154/97. Stable. Stable maintained on home losartan and metoprolol that was started. Monitor BP and adjust treatment as needed. (6) Atrial flutter: Code(s): I48.92 - Unspecified atrial flutter Status: Acute Assessment and Plan: EKG was repeated 04/20 for perioperative risk assessment to compare to his EKG on arrival that showed atrial flutter. Patient has no known history of arrhythmia. He is completely asymptomatic without chest pains, shortness of breath or palpitations and he was unaware of this. Unclear how long he has been in this rhythm. Cardiology evaluated the patient and recommended anticoagulation when the patient is stable from a surgical standpoint. Talked to Dr. Delgado who recommended starting Eliquis the evening prior to discharge to monitor him while on anticoaguluation. While here continue on Lovenox 40 mg daily. Tele at rest 85 bpm, with exertion rate increased to 140 bpm. Patient was also started on Metoprolol 12.5 mg Q12hrs, will increase to 25 mg for better heart rate control. Echocardiogram shows normal systolic function EF 55-60% without wall motion abnormalities with mild mitral regurg. Continue monitoring. Appreciate Cardiology evaluation. Time Spent With Patient Time with patient: 25 - 35 minutes Subjective Date/time seen: 04/25/21 10:06 Interval history: Mr. Palmer is a pleasant 75yo M with history of hypertension and BPH who is seen in follow up for UTI and enterovesicular fistula. He was also incidentally found to have 4.5cm right renal mass and atrial flutter. Date of service 04/25/2021: He is feeling well today. He had two
--- NOTE | 2021-04-25 11:55 | PM.PNCARD ---
Progress Note: A&P Additional Plan 75-year-old man with asymptomatic atrial flutter of unclear certain duration. Arrhythmia was identified volume was hospitalized for noncardiac reasons. He is hemodynamically stable. The only recommendation to make during this hospitalization is systemic anticoagulation should be started sometime prior to discharge. We will follow him with you and determine when that will be appropriate. After discharge 0 follow him in the office and determined for the long-term whether chronic atrial flutter will be his rhythm or whether we will attempt to perform a cardioversion at some point Zak Rizvi MD [facility] Subjective Date/time seen: date of service:04/25/21 11:55 Interval history: Follow-up visit in this 75-year-old man with: Atrial flutter of unknown chronicity identified following admission because of colovesical fistula. Patient underwent operative repair of this with the sigmoid colectomy and repair of the bladder fistula on Friday. There have been no apparent cardiovascular perioperative complications. He is asymptomatic and feels well. Awaiting for bowel function to resume and hoping to be discharged by the end of the week possibly. Exam Const: General: comfortable and no acute distress Other: Very pleasant gentleman appearing his stated age comfortable cooperative in no distress of any kind HENMT: Mouth: Yes moist mucous membranes Eyes: Sclera: sclerae normal Pupils: Equal, round and reactive pupils present Neck: Neck: supple and no JVD Thyroid: thyroid normal Resp: Effort & Inspection: normal respiratory effort Auscultation: clear to auscultation bilaterally Cardio: Other: irregular rhythm PMI is nondisplaced no murmur no gallop no rub Skin: General skin exam: normal color Neuro: Cranial nerves: Yes Equal, round and reactive pupils present Cognition (Neuro): normal cognition Extrem: General: normal to inspection Objective Data Vital Signs Vital Signs: Vital Signs - 24 hr 04/24/21 11:57 04/24/21 12:00 04/24/21 16:00 Temperature 36.2 C L 36.3 C L Pulse Rate 80 77 76 Respiratory Rate 16 20 Blood Pressure 140/84 127/81 Pulse Oximetry 97 98 04/24/21 20:00 04/24/21 22:50 04/25/21 00:00 Temperature 36.5 C 36.8 C Pulse Rate 81 76 82 Respiratory Rate 18 16 Blood Pressure 157/87 H 141/53 H Pulse Oximetry 99 96 04/25/21 04:00 04/25/21 05:47 04/25/21 08:00 Temperature 37.1 C Pulse Rate 79 81 90 Respiratory Rate 16 Blood Pressure 151/87 H Pulse Oximetry 95 04/25/21 08:43 04/25/21 09:45 Temperature 36.6 C Pulse Rate 90 90 Respiratory Rate 18 Blood Pressure 154/97 H Pulse Oximetry 97 Intake/Output Intake/Output: Intake & Output 04/22/21 04/23/21 04/24/21 04/25/21 23:59 23:59 23:59 23:59 Intake Total 3243 1400 3600 1500 Output Total 667 44 4380 2090 Balance 2543 7465 2022 -588 Meds/Results Medications: Active Medications Generic Name Dose Route Start Last Admin Trade Name Freq PRN Reason Stop Dose Admin Acetaminophen 500 mg 04/23/21 18:15 Acetaminophen 500 Mg Tablet PO Q6H PRN Mild Pain (1-3) or Fever Hydrocodone Bitart/Acetaminophen 1 tab 04/23/21 18:15 04/23/21 20:48 Hydrocodone/Acetaminophen (*Crx) 5-325 Mg Tablet PO 1 tab Q6H PRN Administration Pain Rated 4-6 Hydrocodone Bitart/Acetaminophen 1 tab 04/23/21 18:15 Hydrocodone/Acetaminophen (*Crx) 7.5-325 Mg Tablet PO Q6H PRN Pain Rated 7-10 Al Hydrox/Mg Hydrox/Simethicone 30 ml 04/25/21 08:09 04/25/21 08:42 Mag Hydrox/Al Hydrox/Simeth 30 Ml Udc PO 30 ml Q6H PRN Administration Indigestion Alvimopan 12 mg 04/23/21 21:00 04/25/21 08:43 Alvimopan 12 Mg Capsule PO 04/30/21 09:01 12 mg Q12HR CALVIN Administration Aspirin 81 mg 04/19/21 08:00 04/25/21 08:44 Aspirin 81 Mg Chewable Tablet PO 81 mg DAILY@0800 CALVIN Administration Atorvastatin Calcium 20 mg 04/19/21 21:00 08/0
[2021-04-25] MEDS: KCL 20 MEQ/D5/0.9% SOD CHL 1,000 ML 80 ML IV CONT (19:21)
--- NOTE | 2021-04-25 19:36 | PC.NURSE ---
pt states he is feeling much better, has gone in to the bathroom and passed a bunch of gas states stomach is not as bloated and is having some relief from the pressure
[2021-04-25] MEDS: ATORVASTATIN 20 MG TABLET PO (20:54)
[2021-04-25] MEDS: METOPROLOL TARTRATE 25 MG TABLET PO (20:55)
[2021-04-26] VITALS (8 sets, daily range): BP systolic 106–158; BP diastolic 66–88; PULSE 67–82; RESP 16–18; TEMP 36.1–36.8; O2SAT 97–100
[2021-04-26] MEDS: metroNIDAZOLE 500 MG/ISO 100ML 500 MG/100 ML BAG 100 MG IVPB ×3 (05:14→21:53)
[2021-04-26 05:46] LABS: Hematocrit 34.6 % (42.0-52.0); Hemoglobin 11.5 g/dL (14.0-18.0); Mean Corpuscular HGB Conc 33.2 g/dl (32-36); Mean Corpuscular Hemoglobin 29.3 pg (26-34); Mean Corpuscular Volume 88.3 fl (80-100); Mean Platelet Volume 9.1 fl (7.4-10.4); Platelet Count Result 387 k/mm3 (150-375); Red Blood Count 3.92 M/mm3 (4.6-6.20); Red Cell Distribution Width 14.4 % (11.5-14.5); White Blood Count 7.4 K/mm3 (4.5-10.0)
[2021-04-26 05:56] LABS: Anion Gap 0 mmol/L (8-16); Blood Urea Nitrogen 15 mg/dL (9-20); Carbon Dioxide 22 mmol/L (22-30); Chloride 111 mmol/L (98-107); Estimated CRCL calculation 66 ml/min; Estimated Glomerular Filt Rate > 60; Glucose 101 mg/dL (65-110); Potassium 4.4 mmol/L (3.4-5.0); Sodium 133 mmol/L (137-145)
--- NOTE | 2021-04-26 08:52 | ECG_ITS ---
Measurements Intervals [place] Rate: 90 P: CT: 0 QRS: 38 QRSD: 98 T: -18 QT: 387 QTc: 475 Interpretive Statements ATRIAL FIBRILLATION BORDERLINE T WAVE ABNORMALITY- INFERIOR LEADS ABNORMAL ECG Electronically Signed On 04-26-2021 9:46:39 CDT by Reginaldo Escobedo D.O.
--- NOTE | 2021-04-26 09:11 | PM.PNGS ---
Progress Note: A&P Assessment and Plan (1) Diverticulitis of large intestine with complication: Onset Date: Unknown Code(s): K57.32 - Diverticulitis of large intestine without perforation or abscess without bleeding Status: Acute Assessment and Plan: POD3 sigmoid resection with takedown of colovesical fistula. Patient with a lot of bloating and discomfort yesterday evening. He was made NPO and abdominal x-ray this morning suggests an ileus. Bowel function has started to return and he is feeling much better. He may have had some element of an ileus that is resolving. Will allow him to try clear liquids again today and see how he tolerates this. Encouraged him to walk the halls and increase his activity during the day today. Monitor MANE drain output. 590 cc output yesterday, only 90 cc out overnight recorded. Will discuss with Dr. Delgado. 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 We will leave the Steward catheter in for probably 7-[address] Delgado will discuss this with Dr. Jay. (3) Arrhythmia: Code(s): I49.9 - Cardiac arrhythmia, unspecified Status: Acute Assessment and Plan: Found to have atrial flutter that is unknown for how long this may have been ongoing. Cardiology following. 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 If he continues to be in this arrhythmia, then Cardiology is recommending starting anticoagulation, which would be okay from our standpoint to start this the day before his planned discharge to see how he tolerates this. (4) BPH loc w urin obs/LUTS: Code(s): N40.1 - Benign prostatic hyperplasia with lower urinary tract symptoms Status: Acute Assessment and Plan: Finasteride and Tamsulosin have been restarted. Steward in place. (5) Acute UTI: Code(s): N39.0 - Urinary tract infection, site not specified Status: Acute Assessment and Plan: Continue abx. Patient with colovesical fistula/bladder contamination, which was repaired in surgery. Likely needs 3-5 days of antibiotics. (6) Hypertension: Code(s): I10 - Essential (primary) hypertension Status: Chronic Additional Plan I have discussed the plan of care with Dr. Delgado. Subjective Subjective Date/Time Seen: 04/26/21 09:11 Post Op day: 3 Patient reports: feels better, flatus, bowel movement and afebrile Interval history: Patient doing well this morning. He reports that yesterday evening and through the night, he developed bloating and abdominal distention. He states he was very uncomfortable through the night. He tried walking the halls. He reports that finally he had 3 good bowel movements later in the night and one this morning, and now he is feeling much better. He reports the bloating has resolved. He denies any nausea or vomiting. No other complaints at this time. Review of Systems Review of Systems: All systems reviewed & are unremarkable except as noted in HPI and below Constitutional: Constitutional: Reports as per HPI, Reports no additional constitutional complaints, Denies chills and Denies fever(s) Cardiovascular: Cardiovascular: Reports no additional cardiovascular complaints, Denies chest pain and Denies leg edema Respiratory: Respiratory: Reports no additional respiratory complaints, Denies cough and Denies dyspnea Gastrointestinal: Gastrointestinal: Reports as per HPI and Reports no additional gastrointestinal complaints Neurologic: Reports system reviewed and no additional complaints, except as documented and Denies Abnormal speech present Exam Const: General: comfortable, no acute distress, alert and awake Orientation/consciousness: patient oriented x3 Resp: Effort & Inspection: normal respiratory effort Auscultation: clear to auscultation bilat
[2021-04-26] MEDS: FINASTERIDE 5 MG TABLET PO (09:32)
[2021-04-26] MEDS: ALVIMOPAN 12 MG CAPSULE PO ×2 (09:32→21:53)
[2021-04-26] MEDS: ENOXAPARIN 40 MG/0.4 ML SYRINGE SUB-Q (09:32)
[2021-04-26] MEDS: ASPIRIN 81 MG CHEWABLE TABLET PO (09:32)
[2021-04-26] MEDS: PANTOPRAZOLE 40 MG TABLET PO ×2 (09:33→21:53)
[2021-04-26] MEDS: MAGNESIUM OXIDE 400 MG TABLET PO ×2 (09:33→16:41)
[2021-04-26] MEDS: LOSARTAN POTASSIUM 50 MG TABLET PO (09:33)
[2021-04-26] MEDS: TAMSULOSIN HCL 0.4 MG CAPSULE PO (09:34)
[2021-04-26] MEDS: METOPROLOL TARTRATE 25 MG TABLET PO ×2 (09:35→21:54)
[2021-04-26] MEDS: KCL 20 MEQ/D5/0.9% SOD CHL 1,000 ML 80 ML IV CONT (11:52)
--- NOTE | 2021-04-26 13:54 | PM.IMPN ---
Progress Note: A&P Assessment and Plan (1) Enterovesical fistula: Onset Date: Unknown Code(s): N32.1 - Vesicointestinal fistula Status: Acute Assessment and Plan: Patient presented to his urologist at [facility] for evaluation of pneumaturia. Outpatient CT was ordered but patient developed fevers and presented here. 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 GI and urology consulted - appreciate input. Had colonoscopy and cystoscopy 04/[address] Huang and Dr Jay, respectively. 04/23/21- Underwent sigmoid diverticulitis with enterovesical fistula. Incidental discovery of incarcerated (fat) small left inguinal hernia indirect. Continue flagyl and Levoquin (day #6) due to recent diverticulitis. 04/26/21- Last night the patient had increased abdominal distension and was found to have an ileus. He was placed NPO inserted IV fluids again. He had multiple bowel movements with improvement of his symptoms. Was tolerating branch today without any worsening symptoms. Will continue to have the patient walk the halls, advance diet as tolerated as per surgery's recommendations. Patient otherwise with no complaints at this time. Appreciate general surgery input. (2) Sepsis: Code(s): A41.9 - Sepsis, unspecified organism Status: Acute Assessment and Plan: Resolved. Evident on arrival with fever, tachycardia, leukocytosis. Suspected source is UTI vs. GI. Continue Levaquin and flagyl. Monitor cultures, negative to date. Monitor vital signs and urine output. (3) Acute UTI: Code(s): N39.0 - Urinary tract infection, site not specified Status: Acute Assessment and Plan: Urine culture grew Klebsiella. Continue IV Levaquin (day 7). Blood cultures no growth thus far. (4) Renal mass, right: Code(s): N28.89 - Other specified disorders of kidney and ureter Status: Acute Assessment and Plan: CT abd/pelvis demonstrates 4.5 x 3.3cm mass of the right kidney concerning for renal cell carcinoma. This is a new finding. Urology following. Primary concern is to address the fistula situation and then further workup on the renal mass can be addressed on outpatient basis. Partial nephrectomy has been discussed. (5) Hypertension: Code(s): I10 - Essential (primary) hypertension Status: Chronic Assessment and Plan: BP 158/88, Elevated this morning but improved throughout the day 125/83. Stable. Stable maintained on home losartan and metoprolol that was started. Monitor BP and adjust treatment as needed. (6) Atrial flutter: Code(s): I48.92 - Unspecified atrial flutter Status: Acute Assessment and Plan: EKG was repeated 04/20 for perioperative risk assessment to compare to his EKG on arrival that showed atrial flutter. Patient has no known history of arrhythmia. He is completely asymptomatic without chest pains, shortness of breath or palpitations and he was unaware of this. Unclear how long he has been in this rhythm. Cardiology evaluated the patient and recommended anticoagulation when the patient is stable from a surgical standpoint. Talked to Dr. Delgado who recommended starting Eliquis the evening prior to discharge to monitor him while on anticoaguluation. While here continue on Lovenox 40 mg daily. HR improved today 69-80 with vital checks. Continue Metoprolol 25 mg Tele was discontinued. Echocardiogram shows normal systolic function EF 55-60% without wall motion abnormalities with mild mitral regurg. Continue monitoring. Appreciate Cardiology evaluation. Time Spent With Patient Time
--- NOTE | 2021-04-26 15:56 | PM.PNCARD ---
Progress Note: A&P Assessment and Plan (1) Atrial flutter: Code(s): I48.92 - Unspecified atrial flutter Status: Acute Assessment and Plan: 75-year-old man with asymptomatic atrial flutter of unclear certain duration - arrhythmia identified on EKG during this hospitalization for diverticulitis, enterovesicular fistula. Rate controlled with metoprolol 25mg BID. Communicating with general surgery service regarding appropriate timing of starting DOAC. Subjective Date/time seen: 04/26/21 15:56 Interval history: Follow-up visit in this 75-year-old man with: Atrial flutter of unknown chronicity identified following admission because of colovesical fistula. Patient underwent operative repair of this with the sigmoid colectomy and repair of the bladder fistula on Friday. There have been no apparent cardiovascular perioperative complications. He is asymptomatic and feels well. Awaiting for bowel function to resume and hoping to be discharged by the end of the week possibly. Date of service 04/26/2021: Patient states he is feeling significantly better today. He says he was having some abdominal distension last night but has since had a bowel movement and feels much better. He is denying any palpitations or shortness of breath. Review of Systems Constitutional: Constitutional: Reports as per HPI and Reports no additional constitutional complaints Eyes: Eyes: Reports no additional eye complaints ENT: Reports system reviewed and no additional complaints, except as documented Cardiovascular: Cardiovascular: Reports no additional cardiovascular complaints Respiratory: Respiratory: Reports no additional respiratory complaints Gastrointestinal: Gastrointestinal: Reports no additional gastrointestinal complaints Genitourinary: Genitourinary: Reports as per HPI Musculoskeletal: Musculoskeletal: Reports no additional musculoskeletal complaints Integumentary/Breasts: Skin/Breast: Reports system reviewed and no additional complaints, except as docu Neurologic: Reports system reviewed and no additional complaints, except as documented Endocrine: Endocrine: Reports no additional endocrine complaints Hematologic/Lymphatic: Hematologic/Lymphatic: Reports no additional hematologic/lymphatic complaints Allergic/Immunologic: Allergic/Immunologic: Reports no additional allergic/immunologic complaints Exam Const: General: comfortable and no acute distress HENMT: Head: normal to inspection Mouth: Yes moist mucous membranes Eyes: Sclera: sclerae normal Pupils: Equal, round and reactive pupils present Neck: Neck: supple and no JVD Resp: Effort & Inspection: normal respiratory effort Auscultation: clear to auscultation bilaterally Cardio: Rate: regular rate Rhythm: abnormal rhythm Heart sounds: no murmurs GI: GI Palp: Yes Soft to palpation Auscultation: normal bowel sounds Skin: General skin exam: normal color Neuro: Cranial nerves: Yes Equal, round and reactive pupils present Cognition (Neuro): normal cognition Speech: normal speech Extrem: General: normal to inspection, no edema and no pedal edema Psych: Mental Status: mental status grossly normal Objective Data Vital Signs Vital Signs: Vital Signs - 24 hr 04/25/21 18:52 04/25/21 20:55 04/25/21 22:23 Temperature 35.8 C L 36.3 C L Pulse Rate 66 80 81 Respiratory Rate 18 18 Blood Pressure 135/89 132/81 Pulse Oximetry 97 96 04/26/21 00:54 04/26/21 07:40 04/26/21 09:35 Temperature 36.2 C L 36.1 C L Pulse Rate 82 81 80 Respiratory Rate 18 16 Blood Pressure 134/86 158/88 H Pulse Oximetry 99 97 04/26/21 10:00 04/26/21 14:09 Temperature 36.3 C L 36.3 C L Pulse Rate 70 69 Respiratory Rate 18 18 Blood Pressure 125/83 106/66 Pulse Oximetry 98 99 Intake/Output Intake/Output: Intake & Output 04/23/21 04/24/21 04/25/21 04/26/21 23:59 23:59 23:59 23:59 Intake Total 1400 3600 1940 2039 Output Total 45 8195 3430 1045
[2021-04-26] MEDS: ATORVASTATIN 20 MG TABLET PO (21:53)
[2021-04-27] VITALS: BP 128/74; PULSE 63; RESP 14; TEMP 36.4; O2SAT 99
[2021-04-27 05:50] LABS: Anion Gap 3 mmol/L (8-16); Blood Urea Nitrogen 13 mg/dL (9-20); Calcium 8.2 mg/dL (8.4-10.2); Carbon Dioxide 21 mmol/L (22-30); Chloride 111 mmol/L (98-107); Estimated CRCL calculation 53 ml/min; Estimated Glomerular Filt Rate > 60; Glucose 97 mg/dL (65-110); Potassium 4.5 mmol/L (3.4-5.0); Sodium 135 mmol/L (137-145)
[2021-04-27 06:00] VITALS: BP 136/75; PULSE 64; RESP 16; TEMP 36.6; O2SAT 98
[2021-04-27] MEDS: metroNIDAZOLE 500 MG/ISO 100ML 500 MG/100 ML BAG 100 MG IVPB ×2 (06:27→14:29)
[2021-04-27] MEDS: KCL 20 MEQ/D5/0.9% SOD CHL 1,000 ML 50 ML IV CONT (06:35)
--- NOTE | 2021-04-27 06:41 | WPDUROPN2 ---
Progress Note: A&P Assessment and Plan (1) Diverticulitis of large intestine with complication: Onset Date: Unknown Code(s): K57.32 - Diverticulitis of large intestine without perforation or abscess without bleeding Status: Acute (2) Acute UTI: Code(s): N39.0 - Urinary tract infection, site not specified Status: Acute (3) Renal mass, right: Code(s): N28.89 - Other specified disorders of kidney and ureter Status: Acute Assessment and Plan: Progress noted. Pt. tolerating Steward catheter. Catheter should remain in place until Mon.-Wed. next week -> home with indwelling catheter if ready for discharge Should be sent home on Finasteride and Tamsulosin. F/U next week with us to arrange voiding trial and definitive care of renal mass. Subjective Subjective Date/Time Seen: 04/27/21 06:41 Tolerating Steward catheter / urine clear. Review of Systems Cardiovascular: Cardiovascular: Denies chest pain, Denies lightheadedness, Denies palpitations and Denies dyspnea Respiratory: Respiratory: Denies dyspnea Gastrointestinal: Gastrointestinal: Denies diarrhea, Denies nausea and Denies vomiting Genitourinary: Genitourinary: Denies hematuria and Denies dysuria Endocrine: Endocrine: Denies palpitations Exam Const: General: no acute distress Resp: Effort & Inspection: normal respiratory effort GI: Inspection: non-distended GI Palp: No abdominal tenderness and No Guarding due to palpation present (GI) Auscultation: normal bowel sounds Urinary Catheter: Urinary Catheter: patent and draining and urine clear Objective Data Vital Signs Vital Signs: Vital Signs - 24 hr 04/26/21 07:40 04/26/21 09:35 04/26/21 10:00 Temperature 96.9 F L 97.3 F L Pulse Rate 81 80 70 Respiratory Rate 16 18 Blood Pressure 158/88 H 125/83 Pulse Oximetry 97 98 04/26/21 14:09 04/26/21 18:05 04/26/21 21:00 Temperature 97.3 F L 97.1 F L 98.2 F Pulse Rate 69 75 67 Respiratory Rate 18 18 16 Blood Pressure 106/66 113/72 116/66 Pulse Oximetry 99 100 98 04/26/21 21:54 04/27/21 00:00 04/27/21 06:00 Temperature 97.5 F L 97.8 F Pulse Rate 68 63 64 Respiratory Rate 14 16 Blood Pressure 128/74 136/75 Pulse Oximetry 99 98 Intake/Output Intake/Output: Intake & Output 04/24/21 04/25/21 04/26/21 04/27/21 23:59 23:59 23:59 23:59 Intake Total 3600 1940 2460 1200 Output Total 1575 3430 1575 570 Balance 5 -1490 885 630 Meds/Results Medications: Active Medications Generic Name Dose Route Start Last Admin Trade Name Freq PRN Reason Stop Dose Admin Acetaminophen 500 mg 04/23/21 18:15 Acetaminophen 500 Mg Tablet PO Q6H PRN Mild Pain (1-3) or Fever Hydrocodone Bitart/Acetaminophen 1 tab 04/23/21 18:15 04/23/21 20:48 Hydrocodone/Acetaminophen (*Crx) 5-325 Mg Tablet PO 1 tab Q6H PRN Administration Pain Rated 4-6 Hydrocodone Bitart/Acetaminophen 1 tab 04/23/21 18:15 Hydrocodone/Acetaminophen (*Crx) 7.5-325 Mg Tablet PO Q6H PRN Pain Rated 7-10 Al Hydrox/Mg Hydrox/Simethicone 30 ml 04/25/21 08:09 04/25/21 08:42 Mag Hydrox/Al Hydrox/Simeth 30 Ml Udc PO 30 ml Q6H PRN Administration Indigestion Alvimopan 12 mg 04/23/21 21:00 04/26/21 21:53 Alvimopan 12 Mg Capsule PO 04/30/21 09:01 12 mg Q12HR CALVIN Administration Aspirin 81 mg 04/19/21 08:00 04/26/21 09:32 Aspirin 81 Mg Chewable Tablet PO 81 mg DAILY@0800 CALVIN Administration Atorvastatin Calcium 20 mg 04/19/21 21:00 04/26/21 21:53 Atorvastatin 20 Mg Tablet PO 20 mg HS CALVIN Administration Enoxaparin Sodium 40 mg 04/24/21 09:00 04/26/21 09:32 Enoxaparin 40 Mg/0.4 Ml Syringe SUB-Q 40 mg DAILY CALVIN Administration Fentanyl Citrate 25 mcg 04/23/21 12:00 Fentanyl Citrate Inj (*Crx) 100 Mcg/2 Ml Vial IV PUSH Q2M PRN Pain Finasteride 5 mg 04/19/21 09:00 04/26/21 09:32 Finasteride 5 Mg Tablet PO 5 mg
[2021-04-27 08:00] VITALS: BP 133/71; PULSE 67; RESP 16; TEMP 36.3; O2SAT 99
--- NOTE | 2021-04-27 09:04 | PM.PNCARD ---
Progress Note: A&P Assessment and Plan (1) Atrial flutter: Code(s): I48.92 - Unspecified atrial flutter Status: Acute Assessment and Plan: 75-year-old man with asymptomatic atrial flutter of unclear certain duration - arrhythmia identified on EKG during this hospitalization for diverticulitis, enterovesicular fistula. -Rate controlled with metoprolol 25mg BID. -Initiate Eliquis 5mg BID today - this has been discussed with general surgery service. 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 Additional Plan Subjective Date/time seen: 04/27/21 09:04 Interval history: Follow-up visit in this 75-year-old man with: Atrial flutter of unknown chronicity identified following admission because of colovesical fistula. Patient underwent operative repair of this with the sigmoid colectomy and repair of the bladder fistula on Friday. There have been no apparent cardiovascular perioperative complications. He is asymptomatic and feels well. Awaiting for bowel function to resume and hoping to be discharged by the end of the week possibly. Date of service 04/26/2021: Patient states he is feeling significantly better today. He says he was having some abdominal distension last night but has since had a bowel movement and feels much better. He is denying any palpitations or shortness of breath. Date of service 04/27/2021: Continues to feel well today. He's continuing to have bowel movements and says his abdomen feels much less distended. He denies any feelings of palpitations or shortness of breath. Denies complaints of any kind. Review of Systems Constitutional: Constitutional: Reports as per HPI and Reports no additional constitutional complaints Eyes: Eyes: Reports no additional eye complaints ENT: Reports system reviewed and no additional complaints, except as documented Cardiovascular: Cardiovascular: Reports no additional cardiovascular complaints Respiratory: Respiratory: Reports no additional respiratory complaints Gastrointestinal: Gastrointestinal: Reports no additional gastrointestinal complaints Genitourinary: Genitourinary: Reports as per HPI Musculoskeletal: Musculoskeletal: Reports no additional musculoskeletal complaints Integumentary/Breasts: Skin/Breast: Reports system reviewed and no additional complaints, except as docu Neurologic: Reports system reviewed and no additional complaints, except as documented Endocrine: Endocrine: Reports no additional endocrine complaints Hematologic/Lymphatic: Hematologic/Lymphatic: Reports no additional hematologic/lymphatic complaints Allergic/Immunologic: Allergic/Immunologic: Reports no additional allergic/immunologic complaints Exam Const: General: comfortable and no acute distress Other: HENMT: Head: normal to inspection Mouth: Yes moist mucous membranes Eyes: Sclera: sclerae normal Pupils: Equal, round and reactive pupils present Neck: Neck: supple and no JVD Thyroid: thyroid normal Resp: Effort & Inspection: normal respiratory effort Auscultation: clear to auscultation bilaterally Cardio: Rate: regular rate Rhythm: abnormal rhythm Heart sounds: no murmurs GI: Auscultation: normal bowel sounds Skin: General skin exam: normal color Neuro: Cranial nerves: Yes Equal, round and reactive pupils present Cognition (Neuro): normal cognition Speech: normal speech Extrem: General: normal to inspection, no edema and no pedal edema Psych: Mental Status: mental status grossly normal Objective Data Vital Signs Vital Signs: Vital Signs - 24 hr 04/26/21 09:35 04/26/21 10:00 04/26/21 14:09 Temperature 36.3 C L 36.3 C L Pulse Rate 80 70 69 Respiratory Rate 18 18 Blood Pressure 125/83 106/66 Pulse Oximetry 98 99 04/26/21 18:05 04/26/21 21:00 04/26/21 21:54 Temperature 36.2 C L 36.8 C Pulse Rate 75 67 68 Resp
[2021-04-27] MEDS: ALVIMOPAN 12 MG CAPSULE PO (09:37)
[2021-04-27] MEDS: ASPIRIN 81 MG CHEWABLE TABLET PO (09:37)
[2021-04-27 09:38] VITALS: PULSE 64
[2021-04-27] MEDS: METOPROLOL TARTRATE 25 MG TABLET PO (09:38)
[2021-04-27] MEDS: TAMSULOSIN HCL 0.4 MG CAPSULE PO (09:39)
[2021-04-27] MEDS: LOSARTAN POTASSIUM 50 MG TABLET PO (09:39)
[2021-04-27] MEDS: PANTOPRAZOLE 40 MG TABLET PO (09:39)
[2021-04-27] MEDS: MAGNESIUM OXIDE 400 MG TABLET PO ×2 (09:39→17:50)
--- NOTE | 2021-04-27 11:04 | PM.PNGS ---
Progress Note: A&P Assessment and Plan (1) Diverticulitis of large intestine with complication: Onset Date: Unknown Code(s): K57.32 - Diverticulitis of large intestine without perforation or abscess without bleeding Status: Acute Assessment and Plan: POD#4 sigmoid resection with takedown of colovesical fistula. Patient feeling fine, passing gas and had 1 liquid bowel movement that was yellowish in color this morning. Will allow him to try full liquids today and see how he tolerates this. Encouraged him to walk the halls and increase his activity during the day today. removed MANE drain. Okay to discharge and this was discussed with hospitalist. He will follow up with me in 2 weeks and he will follow up with Dr. Lebron so next week Friday or to get his Steward catheter out. 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 We will leave the Steward catheter in for probably 7-[address] Delgado will discuss this with Dr. Jay. (3) Arrhythmia: Code(s): I49.9 - Cardiac arrhythmia, unspecified Status: Acute Assessment and Plan: Found to have atrial flutter that is unknown for how long this may have been ongoing. Cardiology following. 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 If he continues to be in this arrhythmia, then Cardiology is recommending starting anticoagulation, which would be okay from our standpoint to start this the day before his planned discharge to see how he tolerates this. (4) BPH loc w urin obs/LUTS: Code(s): N40.1 - Benign prostatic hyperplasia with lower urinary tract symptoms Status: Acute Assessment and Plan: Finasteride and Tamsulosin have been restarted. Steward in place. (5) Acute UTI: Code(s): N39.0 - Urinary tract infection, site not specified Status: Acute Assessment and Plan: Continue abx. Patient with colovesical fistula/bladder contamination, which was repaired in surgery. Will continue antibiotics at total of just over a week from the time of surgery so hospitalist will send him home with Levaquin or Cipro for 3-4 more days. (6) Hypertension: Code(s): I10 - Essential (primary) hypertension Status: Chronic Additional Plan I have discussed the plan of care And discharge plan with Geovanna from the hospitalist service and Dr. Jay Subjective Subjective Date/Time Seen: 04/27/21 11:04 Patient lying in bed when I entered the room. He states he feels good he has tolerated a full liquid diet. He would like to have the MANE drain removed and I checked this only 100 cc out over the last 24 hours. It was all serous so the MANE drain was removed this date. Post Op day: 4 ( Status post colovesical fistula takedown, sigmoid resection with anastomosis) Patient reports: no new complaints, tolerating liquids well and bowel movement Review of Systems Review of Systems: All systems reviewed & are unremarkable except as noted in HPI and below Constitutional: Constitutional: Reports as per HPI, Reports no additional constitutional complaints, Denies chills, Denies fever(s) and Denies headache(s) Eyes: Eyes: Denies loss of vision and Denies eye pain ENT: Reports Normal hearing present, Denies change in voice, Denies dizziness, Denies headache(s) and Reports other (Mucous Membranes moist.) Cardiovascular: Cardiovascular: Reports no additional cardiovascular complaints, Denies chest pain, Denies leg edema and Denies dyspnea Respiratory: Respiratory: Reports no additional respiratory complaints, Denies cough, Denies pain on inspiration, Denies dyspnea and Denies wheezing Gastrointestinal: Gastrointestinal: Reports as per HPI, Reports no additional gastrointestinal complaints, Reports abdominal pain ( suprapubic prior to startin
[2021-04-27 12:00] VITALS: BP 131/75; PULSE 63; RESP 20; TEMP 36.3; O2SAT 100
[2021-04-27] MEDS: FINASTERIDE 5 MG TABLET PO (12:35)
--- NOTE | 2021-04-27 15:34 | PM.DS ---
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 the patient being can developing fevers of 103 came to the emergency room for further evaluation. CT scan the abdomen and pelvis with without contrast reveals evidence of fistula between the sigmoid colon and the anterior/ dome bladder. GI was consulted and on 04/20/2021 the patient underwent a colonoscopy and cystoscopy with findings of Small area of hyperemia in the bladder dome, consistent with colovesical fistula. surgery was consulted and the patient underwent surgery on 04/23/[address] Delgado and had a Hand assisted laparoscopic left colon resection (Sigmoid). takedown of enterocolic vesical fistula with repair of dome of bladder with 3 sutures. The patient had been on IV Levaquin and IV Metronidazole during hospitalization and for possible diverticulitis and coverage of UTI which grew Klebsiella pneumoniae. his diet was advanced by surgery and he was slowly able to eat again. He did have a slight complication with an ileus but it resolved within a few hours and had no more issues. Patient was still a Steward catheter in place for another 5 days until seen by the urologist as an outpatient. He was continued on oral antibiotics for a few more days. Patient is to follow-up with surgery as an outpatient as well for postop follow-up. Patient was also found to be in atrial flutter on repeat EKG on 04/20. Patient has no known history of arrhythmia. He is completely asymptomatic without chest pains, shortness of breath or palpitations and he was unaware of this. Unclear how long he has been in this rhythm. Cardiology evaluated the patient and recommended anticoagulation when the patient is stable from a surgical standpoint. Talked to Dr. Delgado who recommended starting Eliquis just prior to discharge. Cardiology gave Eliquis the morning of discharge. No signs of acute bleeding. Continue Metoprolol 25 mg. Echocardiogram shows normal systolic function EF 55-60% without wall motion abnormalities with mild mitral regurg. There is a 4.5 cm mass in the lower pole of his right kidney, consistent with primary renal cell carcinoma. Will follow up with Urology as an outpatient. (2) Sepsis: Code(s): A41.9 - Sepsis, unspecified organism Status: Acute Assessment and Plan: Resolved. Evident on arrival with fever, tachycardia, leukocytosis. Suspected source is UTI vs. GI. Continue Levaquin and flagyl. Monitor cultures, negative to date. Vital signs are stable. (3) Acute UTI: Code(s): N39.0 - Urinary tract infection, site not specified Status: Acute Assessment and Plan: Urine culture grew Klebsiella. Continue IV Levaquin (day 7). Blood cultures show no growth. (4) Renal mass, right: Code(s): N28.89 - Other specified disorders of kidney and ureter Status: Acute Assessment and Plan: CT abd/pelvis demonstrates 4.5 x 3.3cm mass of the right kidney concerning for renal cell carcinoma. This is a new finding. Urology following. Primary concern is to address the fistula situation and then further workup on the renal mass can be addressed on outpatient basis. Partial nephrectomy has been discussed. (5) Hypertension: Code(s): I10 - Essential (primary) hypertension Status: Chronic Assessment and Plan: BP 131/75, stable. Stable maintained on home losartan and metoprolol that was started.
--- NOTE | 2021-04-27 15:48 | PCDIET ---
Nutrition Follow-Up Complete: Altered GI function as related to sigmoid resection as evidenced by NPO/clear liquid x 5 days. Meet estimated nutritional needs Goal:Approaching goal Pt current nutrition is full liquids. Nutrition recommendation: Agree Last recorded weight is 93 kg, down from 96.5kg Labs Reviewed: Na 135, Hgb 11.5, Hct 34.4 Additional Notes: Pt d/c home tonight. Assisted pt in ordering cream of tomato soup, vanilla pudding, and honey and tea for dinner. PO intake at 100%. Appetite good. No further nutrition needs.
[2021-04-27] MEDS: APIXABAN 5 MG TABLET PO (17:50)
== END 2021-04-27 18:15 | disposition home or self-care (01) | DRG 854 ==
LOC: ANHED 19:57 → ANH3MEDSUR 22:12 → ANH2MED 04-24 07:59 → ANH3MEDSUR 04-30 12:47
PROVIDERS: Internal Medicine Gastroenterology; Physician Assistant; Surgery; Urology; Admitting Provider Internal Medicine; Emergency Provider Emergency Medicine; Visit Provider Physician Assistant
PROC: 0DJD8ZZ Inspection of Lower Intestinal Tract, Via Natural or Artificial Opening Endoscopic (ICD-10-PCS; CPT 45378; principal; 2021-04-20 12:00)
PROC: 0TJB8ZZ Inspection of Bladder, Via Natural or Artificial Opening Endoscopic (ICD-10-PCS; CPT 52000; 2021-04-20 12:00)
PROC: 0D1E4Z4 Bypass Large Intestine to Cutaneous, Percutaneous Endoscopic Approach (ICD-10-PCS; principal; 2021-04-23 13:00)
DX: A41.9 Sepsis, unspecified organism (principal); N39.0 Urinary tract infection, site not specified; N32.1 Vesicointestinal fistula; I48.92 Unspecified atrial flutter; K57.32 Diverticulitis of large intestine without perforation or abscess without bleeding; K40.30 Unilateral inguinal hernia, with obstruction, without gangrene, not specified as recurrent; Z79.82 Long term (current) use of aspirin; I10 Essential (primary) hypertension; N28.89 Other specified disorders of kidney and ureter; N40.0 Benign prostatic hyperplasia without lower urinary tract symptoms; Z87.891 Personal history of nicotine dependence; F12.90 Cannabis use, unspecified, uncomplicated; I49.9 Cardiac arrhythmia, unspecified; E78.5 Hyperlipidemia, unspecified; K64.8 Other hemorrhoids; K66.0 Peritoneal adhesions (postprocedural) (postinfection)
CPT/HCPCS: 36415; 71046; 74019; 74177; 80048; 80053; 81001; 83605; 83690; 83735; 84134; 84484; 85025; 85027; 85610; 85730; 86140; 86850; 86900; 86901; 87040; 87077; 87086; 87088; 87186; 88305; 88307; 93005; 93306; 96361; 96374; 96375; 97161; 99285; A9270; C1729; G0378; J0131; J0690; J1100; J1170; J1650; J1885; J1956; J2590; J2704; J2710; J3010; J3475; J3480; J7030; J7120; Q9967

== ENCOUNTER 2021-09-04 13:07 | Outpatient (CLI) | payer MEDICARE, SELFPAY ==
--- NOTE | ~2021-09-04 | CT_ITS ---
EXAMINATION: CT abdomen pelvis wo con DATE: 09/04/2021 13:48 INDICATION: Right renal mass. TECHNIQUE: Computed tomography (CT) of the abdomen and pelvis was performed without intravenous contr ast. The dose-length product was 771.85 mGy-cm. Automated exposure control and iterative reconstructi on technique were employed. COMPARISON: CT dated 04/18/2021. FINDINGS: Lung bases are unremarkable. Heart size normal. No significant pleural or pericardial effus ion. There is an exophytic right renal mass measuring 4.5 x 3.4 x 4 cm without significant change fro m prior examination allowing for differences of technique. The liver, spleen, pancreas, adrenal gland s and left kidney are unremarkable. Normal appendix. There is a persistent abnormal fluid collection measuring 4.4 x 2.8 cm along the left anterior lateral margin of the bladder, likely attributable to previously described fistula from the sigmoid colon. No definite residual fistula is identified. Ther e are postsurgical changes consistent with partial sigmoid colon moderate lower thoracic and lumbar s pondylosis. Resection since prior examination. Enlarged prostate gland. There is a right inguinal pen ile prosthetic pump. There is a fat-containing left inguinal hernia. IMPRESSION: 1. Exophytic right renal mass measuring 4.5 x 3.4 x 4 cm, consistent with renal cell carcinoma until proven otherwise. 2: Status post interval partial sigmoid colon resection with no definite residual colovesical fistula . There is a residual soft tissue and fluid collection along the left anterior bladder wall, likely s equela of previous fistula. Cannot exclude infection. Reviewed, dictated and finalized at location A. OM STUDIO COORDINATOR IMPRESSION: 1. Exophytic right renal mass measuring 4.5 x 3.4 x 4 cm, consistent with renal cell carcinoma until proven otherwise. 2: Status post interval partial sigmoid colon resection with no definite residu al colovesical fistula. There is a residual soft tissue and fluid collection al magno the left anterior bladder wall, likely sequela of previous fistula. Cannot exclude infection.
== END 2021-09-04 13:08 | disposition home or self-care (01) ==
LOC: ANHIMG 13:14
PROVIDERS: Visit Provider Urology
DX: N28.89 Other specified disorders of kidney and ureter (principal); Z90.49 Acquired absence of other specified parts of digestive tract
CPT/HCPCS: 74176

== ENCOUNTER 2023-04-30 15:48 | Outpatient (CLI) | payer MEDICARE, SELFPAY ==
--- NOTE | ~2023-04-30 | CT_ITS ---
Non-contrast CT scan of the Abdomen and Pelvis Clinical indication: Right renal mass Technique: 2.5 mm axial scans were obtained through the abdomen and pelvis without intravenous or or al contrast. Dose reduction technique was used on this scan by utilizing automated exposure control a nd iterative reconstruction technique. The dose-length product (DLP) was 746.83 mGy-cm. COMPARISON: 09/04/2021 Findings: Images through the lung bases reveal no abnormalities. There is evidence of interval resection or ablation of right renal mass as compared to prior exam. Le ft kidney unremarkable. The liver, spleen, pancreas, gallbladder, and adrenals appear normal. There is no aortic aneurysm. There is no evidence of bowel obstruction. Images through the pelvis were performed. There is no evidence of ascites or lymphadenopathy. Urinary bladder grossly unremarkable. Prostate gland is enlarged. Fat-containing left femoral hernia present . Impression: Status post prior resection or ablation of right renal mass as compared to prior exam. No recurrent m ass evident on this exam. Enlarged prostate gland. Reviewed, dictated and finalized at location M. Impression: Status post prior resection or ablation of right renal mass as compared to prio r exam. No recurrent mass evident on this exam. Enlarged prostate gland.
--- NOTE | ~2023-04-30 | XR_ITS ---
EXAMINATION: XR chest 2V Exam Date/Time: 04/30/2023 16:40 CDT HISTORY: RIGHT RENAL MASS REMOVED X 1 YEAR AGO Comparison: 04/18/2021. RESULT: Lines, tubes, and devices: None. Lungs and pleura: Clear. Cardiomediastinal silhouette: Stable. Other: No acute osseous or upper abdominal finding. IMPRESSION: No acute cardiopulmonary process. Reviewed, dictated and finalized at location K.
== END 2023-04-30 15:49 | disposition home or self-care (01) ==
PROVIDERS: Visit Provider Urology
DX: N28.89 Other specified disorders of kidney and ureter (principal); N40.0 Benign prostatic hyperplasia without lower urinary tract symptoms
CPT/HCPCS: 71046; 74176

== ENCOUNTER 2024-04-30 12:29 | Outpatient (CLI) | payer MEDICARE, SELFPAY ==
--- NOTE | ~2024-04-30 | XR_ITS ---
EXAMINATION: XR chest 2V 04/30/2024 13:06 INDICATION: Renal mass PROCEDURE: 2 view chest COMPARISON: 04/30/2023 FINDINGS: The lungs are clear. The cardiomediastinal silhouette is within normal limits. There are no pleural effusions. There is no pneumothorax suspected. IMPRESSION: 1: NO ACUTE CARDIOPULMONARY DISEASE. Reviewed, dictated and finalized at location B.
--- NOTE | ~2024-04-30 | CT_ITS ---
Non-contrast CT scan of the Abdomen and Pelvis Clinical indication: Right renal mass Technique: 2.5 mm axial scans were obtained through the abdomen and pelvis without intravenous or or al contrast. Dose reduction technique was used on this scan by utilizing automated exposure control a nd iterative reconstruction technique. The dose-length product (DLP) was 738.29 mGy-cm. COMPARISON: 04/30/2023 Findings: Images through the lung bases reveal no abnormalities. There is stable postoperative versus possibly a change of the right kidney. Left kidney unremarkable. No obstructing stone identified. No distinct suspicious mass seen on noncontrast exam. The liver, spleen, pancreas, gallbladder, and adrenals appear normal. There are atherosclerotic calci fications of the aorta. . There is no evidence of bowel obstruction. Sigmoid colonic anastomosis present. There is diverticulos is. Images through the pelvis were performed. There is no evidence of ascites or lymphadenopathy. Urinary bladder unremarkable. Prostate gland enlarged. Moderate to large fat-containing left inguinal hernia present. Small to moderate fat-containing right inguinal hernia present. Impression: Stable postoperative or postablative change of the right kidney. No distinct recurrent mass evident. Stable bilateral fat-containing hernias, left larger than right. Enlarged prostate gland. Reviewed, dictated and finalized at location . Impression: Stable postoperative or postablative change of the right kidney. No distinct re current mass evident. Stable bilateral fat-containing hernias, left larger than right. Enlarged prostate gland.
== END 2024-04-30 12:30 | disposition home or self-care (01) ==
PROVIDERS: Visit Provider Urology
DX: N28.89 Other specified disorders of kidney and ureter (principal); K46.9 Unspecified abdominal hernia without obstruction or gangrene; N40.0 Benign prostatic hyperplasia without lower urinary tract symptoms
CPT/HCPCS: 71046; 74176

== ENCOUNTER 2024-10-28 16:41 | Emergency (ER) | payer MEDICARE, SELFPAY ==
--- NOTE | ~2024-10-28 | XR_ITS ---
EXAMINATION: XR shoulder LT min 2V DATE: 10/28/2024 17:03 INDICATION: Left shoulder pain post fall TECHNIQUE: AP and transscapular Y views of the left shoulder were obtained. COMPARISON: None FINDINGS: Anterior left glenohumeral dislocation. No fracture. Mild left acromioclavicular osteoarthritis with small inferiorly directed osteophytes at the lateral head of the clavicle. There are also small subac romial spurs. Visualized portion of the left lung are clear. There is concave contour to the soft tis sues at the lateral left shoulder resulting from the displacement of the humeral head. Tiny screw lik don external to the patient projects over the left axilla. IMPRESSION: Anterior left glenoid humeral dislocation without evident fracture. Reviewed, dictated and finalized at location A. 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
--- NOTE | 2024-10-28 17:02 | ED.UPPEXIN ---
HPI - Extremity Injury (Upper) General Chief Complaint: Extremity Injury, Upper Stated Complaint: Left arm pain Time Seen by Provider: 10/28/24 17:02 Source: patient Mode of arrival: ambulatory Limitations: no limitations History of Present Illness HPI narrative: 79 yo M presents with pain to L shoulder. pt's was falling and pt reached out to grab her to stop her from falling and they ended up both falling and pt fell down 2 to 3 steps and landed on L shoulder. Denies hitting head. No LOC. pt was at [employer] at time of injury. Drove himself to express care because his does not drive. c/o numbness and cold sensation to L hand. Unable to lift LUE. Patient ambulatory with steady gait. All systems reviewed and negative except as above. Related Data Home Medications ?Medication ?Instructions ?Recorded ?Confirmed ?Last Taken ?Type aspirin 81 mg tablet 81 mg PO DAILY 04/18/21 10/28/24 Unknown History atorvastatin 20 mg tablet 20 mg PO HS 04/18/21 10/28/24 04/17/21 21:00 History losartan 50 mg tablet 50 mg PO DAILY 04/18/21 10/28/24 04/18/21 07:00 History omeprazole 20 mg capsule,delayed 20 mg PO DAILY 04/18/21 10/28/24 04/18/21 07:00 History release tamsulosin 0.4 mg capsule 0.4 mg PO DAILY 04/18/21 06/21/21 04/18/21 07:00 History Allergies Allergy/AdvReac Type Severity Reaction Status Date / Time ORION Inhibitors Allergy Rash Verified 10/28/24 16:56 Penicillins Allergy Rash Verified 10/28/24 16:56 Review of Systems Review of Systems: CONSTITUTIONAL: Denies fever, chills, or sweats. EYES: Denies visual changes, redness, or discharge. ENT: Denies rhinorrhea, congestion, sore throat, or otalgia. CARDIOVASCULAR: Denies chest pain, palpitations, or edema. RESPIRATORY: Denies cough or dyspnea. GASTROINTESTINAL: Denies abdominal pain, nausea, vomiting, or diarrhea. GENITOURINARY: Denies dysuria or hematuria. SKIN: Denies rash or itching. MUSCULOSKELETAL: Reports pain to left shoulder with numbness and cold sensation to left fingers. NEUROLOGIC: Denies headache, numbness, or weakness. PSYCHIATRIC: Denies anxiety or depression. All other systems reviewed are negative, except as documented in HPI. [facility] Past Medical History Medical History Atrial flutter by electrocardiogram (Unknown) Diverticulitis of large intestine with complication (Unknown) Enterovesical fistula (Unknown) Hypertension Surgical History Surgical History History of colon resection 04/25/2021 - hand assisted laparoscopic left (sigmoid) colon resection, takedown of entero-colic vesical fistula with repair of dome of bladder Family History Family History Mother Congestive heart failure Father Lung cancer Social History Social History Smoking status: Former smoker Alcohol intake: current Drinks per week: 4 Substance use: current Substance use type: marijuana Spiritual care concerns: No Comments At time of signature, agree with nursing past medical, surgical, social and family history. There is no relevant family history pertinent to the presenting complaint. Exam Narrative: GENERAL: This is a well-nourished, well-developed patient, in no apparent distress. HEAD: normocephalic, atraumatic. EYES: PERRL. Sclera clear/white. Vision is grossly intact. EARS: External ears normal NOSE: External nose normal NECK: Neck supple, non-tender without lymphadenopathy, masses or thyromegaly. CARDIOVASCULAR: Regular rate and rhythm without murmurs, gallops, or rubs. RESPIRATORY: Clear to auscultation. Breath sounds equal bilaterally. No wheezes, rales, or rhonchi. SKIN: warm, Dry, intact with no suspicious lesions or rash, good texture and turgor. NEURO: awake, alert, and oriented to person, place and time. There were no obvious focal neurologic abnormalities. EXTREMITIES: Tenderness to anterior aspect left shoulder, decreased range of motion, CMS intact. Course Course Level of Care: Express Care Visit Vital Signs Vital signs: Vital Signs Temperature 36.6 C 10/28/24 17:03 Pulse Rate 70 10/28/24 17:03 Respiratory Rate 16 10/28/24 17:03 Blood Pressure 194/93 H 10/28/24 17:03 Pulse Oximetry 97 10/28/24 17:03 Temperature 36.6 C 10/28/24 17:03 Pulse Rate 70 10/28/24 17:03 Respiratory Rate 16 10/28/24 17:03 Blood Pressure 194/93 H 10/28/24 17:03 Pulse Oximetry 97 10/28/24 17:03 Reviewed Transfer Transfered to: [facility] Transportation: Other (Private vehicle) Transfer rationale: Transferring patient to ER for reduction of left anterior dislocated shoulder. Accepting physician: Dr. Ramos MDM - Extremity Injury (Upper) MDM Narrative Medical decision making narrative: Discussed x-ray results with patient. X-ray of left shoulder shows an anterior dislocation. Patient has decreased range of motion to left upper extremity, CMS intact. Will transfer to [facility] ER for reduction. Patient agrees with plan of care. Would like to drive himself. Please be advised this is a medical document. It is intended for [id number] communication. It is written in medical language and may contain unfamiliar abbreviations or verbiage. Medical documents are intended to carry relevant information, facts as evident, and the clinical opinion of the practitioner at the time of the encounter. This report may have been done utilizing a voice recognition system. Attempts have been made to correct errors. However, there may be uncorrected grammatical, spelling, and recognition errors present. The file time of this note does not necessarily represent the time of service. Imaging Data My impression: Agree with radiologist Radiologist's impression: EXAMINATION: XR shoulder LT min 2V DATE: 10/28/2024 17:03 INDICATION: Left shoulder pain post fall TECHNIQUE: AP and transscapular Y views of the left shoulder were obtained. COMPARISON: None FINDINGS: Anterior left glenohumeral dislocation. No fracture. Mild left acromioclavicular osteoarthritis with small inferiorly directed osteophytes at the lateral head of the clavicle. There are also small subacromial spurs. Visualized portion of the left lung are clear. There is concave contour to the soft tissues at the lateral left shoulder resulting from the displacement of the humeral head. Tiny screw likely external to the patient projects over the left axilla. IMPRESSION: Anterior left glenoid humeral dislocation without evident fracture. Discharge Plan Discharge Clinical Impression: Anterior dislocation of left shoulder Patient Disposition: Acute Care Hospital Condition: Stable Additional Instructions: Go directly to the ER. Do not have anything to eat or drink. Patient Language: Ukrainian Prescriptions: No Action losartan 50 mg tablet 50 mg PO DAILY atorvastatin 20 mg tablet 20 mg PO HS tamsulosin 0.4 mg capsule 0.4 mg PO DAILY omeprazole 20 mg capsule,delayed release(DR/EC) 20 mg PO DAILY aspirin 81 mg Tablet 81 mg PO DAILY finasteride [Proscar] 5 mg Tablet 5 mg PO QAM Qty: 30 0RF metoprolol tartrate 25 mg Tablet 25 mg PO Q12HR Qty: 60 0RF Saccharomyces boulardii [Florastor] 250 mg capsule 250 mg PO BID 6 Days Qty: 12 0RF Follow-up/Referrals: UNKNOWN,DOCTOR [Primary Care Provider] - Time of Disposition: 17:19
[2024-10-28 17:03] VITALS: BP 194/93; PULSE 70; RESP 16; TEMP 36.6; O2SAT 97
== END 2024-10-28 17:21 | disposition short-term general hospital (02) ==
PROVIDERS: Emergency Provider Nurse Practitioner Family
DX: S43.015A Anterior dislocation of left humerus, initial encounter (principal); W10.9XXA Fall (on) (from) unspecified stairs and steps, initial encounter; I10 Essential (primary) hypertension; I48.92 Unspecified atrial flutter; Z87.891 Personal history of nicotine dependence; F12.90 Cannabis use, unspecified, uncomplicated; Z79.82 Long term (current) use of aspirin
CPT/HCPCS: 73030; 99213; A4565; G0463

== ENCOUNTER 2024-10-28 17:37 | Emergency (ER) | payer MEDICARE, SELFPAY ==
--- NOTE | ~2024-10-28 | XR_ITS ---
HISTORY: fall, L knee pain COMPARISON: None TECHNIQUE: 3 views of the left knee were performed FINDINGS: No acute or subacute fracture. Medial tibiofemoral joint space narrowing is identified. Ossification of the insertion of the tibial patellar tendon. No suprapatellar joint effusion is identified. The infrapatellar joint space is clear. 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 Reviewed, dictated and finalized at location A. 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
--- NOTE | ~2024-10-28 | XR_ITS ---
HISTORY: post reduction COMPARISON: Previous examination, performed 90 minutes earlier TECHNIQUE: 2 views of the left shoulder were performed. FINDINGS: No acute fracture. The glenohumeral and acromioclavicular joint space is maintained The visualized portion of the adjacent left lung is clear. The humeral head is well seated within the glenoid fossa. IMPRESSION: No acute fracture postreduction Reviewed, dictated and finalized at location A. [employer]
--- OUTSIDE RECORDS SUMMARY | 2024-10-28 17:40 | XMS_ITS | Continuity of Care Document ---
Author Organization [employer] Address [address] [place] [address] Social History Not on File Plan of Treatment Not on file
--- OUTSIDE RECORDS SUMMARY | 2024-10-28 17:41 | XMS_ITS | Clinical Summary ---
Author Organization [facility] al Address [address] [place] [address] Care Team Providers Care Senior Solutions Workflow Consultant Name Role Phone Zak Tripathi MD Primary Care Provider [phone]- [phone] Sergio Barnard MD Unavailable [phone] Allergies Active Allergy Reactions Criticality Noted Date Comments Anthony Inhibitors Rash Medium 10/05/2019 Penicillin Rash Medium 30+ years ago Medications turmeric root extract 500 mg capsule Take 1 tablet by mouth daily Active multivitamin tabletIndicati ons:Vitamin Deficiency Prevention Take 1 tablet by mouth daily Active HYDROcodone-ac etaminophen (NORCO) 5-325 mg per tabletIndicati ons:Pain Take 1 tablet by mouth every 6 (six) hours as needed for pain 20 tablet 2 Active tamsulosin (FLOMAX) 0.4 mg extended release capsule Take 1 capsule (0.4 mg total) by mouth daily 90 capsule 3 4 Active metoprolol tartrate (LOPRESSOR) 25 mg immediate release tablet Take 1 tablet (25 mg total) by mouth 2 (two) times a day 180 tablet 3 4 Active losartan (COZAAR) 25 mg tablet Take 1 tablet (25 mg total) by mouth daily 30 tablet 2 4 Active atorvastatin (LIPITOR) 20 mg tablet TAKE 1 TABLET(20 MG) BY MOUTH DAILY 90 tablet 1 4 Active omeprazole (PriLOSEC) 20 mg capsule TAKE 1 CAPSULE(20 MG) BY MOUTH DAILY 90 capsule 1 4 Active finasteride (PROSCAR) 5 mg tablet TAKE 1 TABLET(5 MG) BY MOUTH DAILY 30 tablet 5 Active finasteride (PROSCAR) 5 mg tablet TAKE 1 TABLET(5 MG) BY MOUTH DAILY 90 tablet 1 4 10/01/19 25 Discontinued finasteride (PROSCAR) 5 mg tablet TAKE 1 TABLET(5 MG) BY MOUTH DAILY 30 tablet 5 10/12/19 25 Discontinued Active Problems Problem Noted Date Diagnosed Date Renal mass, right 10/12/2021 Right renal mass 09/25/2021 Overview (09/25/2021): Added automatically from request for surgery [id number] Paroxysmal atrial flutter ([facility]) 05/14/2021 Chronic anticoagulation 05/14/2021 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 His BPH may be contributing, and in fact a mild case of prostatitis is a consideration Assessment & Plan (05/29/2020 8:49 AM CDT): Given his known h/o the UTI and how this seems exactly like prior episodes, we will empirically treat (for now) w/ 7 days cipro. This will cover a cystitis and also likley take care of prostatits. I have also advised to doube the flomax the next several nights to further aid in releiving the BPH and thereby reduce the residual volume. He was counselled to monitor for lack of effect and/or worsening and let Dr. Tripathi know in the next few days how he is doing. Rosacea 10/05/2019 Essential hypertension 07/26/2019 Depression screening negative July 201912/2018 Alcohol screening: Negative July 20192018 Adenoma of large intestine:c scope 2018;next 202 6 01/07/2017 Gastroesophageal reflux disease 10/29/2016 Enlarged prostate 07/11/2015 ED (erectile dysfunction) of organic origin 05/25 Encounter for preventive health examination 01/20 Elevated prostate specific antigen (PSA) 007 Resolved Problems Problem Noted Date Diagnosed Date Resolved Date Cystitis 06/24/2017 07/26/2019 Immunizations Name Administration Dates Next Due Influenza, Quad, Adjuvantated, Intramuscular 11/2020 Influenza, Quadrivalent, Hig h Dose, Preservative Free, Intrr 07/19/2020 Influenza, Quadrivalent, Spl it, Preservative Free, Intramuscular 06/20/2017 Influenza, Trivalent, High D ose, Split, Preservative Free, Intramuscular 07/26/2019,06/21/2014 Influenza, Trivalent, Preservative Free, Intramu scular 07/11/2015 Pneumococcal Conjugate PCV 13 11/28/2015 Pneumococcal Polysaccharide PPV23 07/11/2015 RSV Vaccine, Pref, Recombina nt, Subunit, Adjuvanted, PF, IM (Arexvy) 09/22/2023 TD Preservative Free 11/28/2015 ZOSTER Recombinant 09/22/2018 Surgical History Surgery Date Site/Laterality Comments [place] UNLISTED PROCEDURE ABDOME N PERITONEUM & OMENTUM Hernia Repair - (Added by TW Conv) [place] INSJ PENILE PROSTHESOS INFLATABLE SELF-CONTAINED Surg Penis Inflatable Penile Prosthesis - (Added by TW Conv) FISTULA REPAIR colovesical fistula repair Medical History Medical History Date Comments Diverticulosis of intestine without perforation or abscess without bleeding Diverticulosis - (Added by TW Conv) Abdominal pain Abdominal discom fort - (Added by TW Conv) Acute bronchitis Acute bronchiti s - (Added by TW Conv) Pain in shoulder Shoulder joint pain - (Added by TW Conv) Retention of urine Urinary reten tion with incomplete bladder emptying - (Added by TW Conv) Urinary tract infection UTI (uri nary tract infection) - (Added by TW Conv) Myalgia Left buttock giovanni n - (Added by TW Conv) Hordeolum externum of left eye S galilea, left - (Added by TW Conv) Left lower quadrant pain Abdomin al pain, LLQ (left lower quadrant) - (Added by TW Conv) Cough Cough - (Added b y TW Conv) Pain in right knee Knee pain, ri ght - (Added by TW Conv) Acute bronchitis Chronic bronchi tis with acute exacerbation - (Added by TW Conv) Other specified disorders of Eustachian tube, unspecified ear Eustachian tube dysfunction - (Added by TW Conv) Epigastric pain Abdominal pain, acute, epigastric - (Added by TW Conv) Essential hypertension 07/26/2019 Mitral valve prolapse 08/15/2020 Pure hypercholesterolemia 08/15/2020 Paroxysmal atrial flutter ([facility]) (HCC) 05/14/2021 Family History Medical History Relation Name Comments Atrial fibrillation Brother Family h istory of atrial fibrillation - (Added by TW Conv) Lung cancer Father Family history of lung cancer - (Added by TW Conv) Heart failure Mother Family history of congestive heart failure - (Added by TW Conv) Relation Name Status Comments Brother Father Mother Social History Tobacco Use Types Packs/Day Years Used Date Smoking Tobacco: Former Smokeless Tobacco: Never Tobacco Cessation:Counseling Given: Not Answered AUDIT-C Answer Date Recorded Q1: How often do you have a drink containing alcohol? 4 or more times a week 10/03/2021 Q2: How many drinks containi ng alcohol do you have on a typical day when you are drinking? 1 or 2 Q3: How often do you have si x or more drinks on one occasion? Never 10/03/2021 Sex and Gender Information Value Date Recorded Sex Assigned at Not on file Legal Sex Male 8:18 PM SEED POTATO ARRANGER Gender Identity Male 10/16/2021 10:24 AM SEED POTATO ARRANGER Sexual Orientation Not on file Obstetrics History Last Filed Vital Signs Vital Sign Reading Time Taken Comments Blood Pressure 140/86 10/16/2023 11:46 AM SEED POTATO ARRANGER Pulse 65 10/16/2023 11:46 AM SEED POTATO ARRANGER Temperature 36.5 C (97.7 F) 10/16/2023 11:46 AM SEED POTATO ARRANGER Respiratory Rate 18 10/14/2021 5:14 AM SEED POTATO ARRANGER Oxygen Saturation 97% 11/21/2022 2:41 PM SEED POTATO ARRANGER Inhaled Oxygen Concentration - - Weight 94.8 kg (209 lb) 10/16/2023 11:46 AM SEED POTATO ARRANGER Height 177.8 cm (5' 10 ) 11/21/2022 2:41 PM SEED POTATO ARRANGER Body Mass Index 29.99 11/21/2022 2:41 PM SEED POTATO ARRANGER Plan of Treatment Health Maintenance Due Date Last Done Comments Depression Screening 1945 Hepatitis C Screening 1945 Hepatitis B Screening 1963 Abdominal Aortic Aneurysm (A AA) Screen 2010 DTaP/Tdap/Td Vaccine (1 - Tdap) 11/29/2015 6 Zoster Vaccine (2 of 2) 11/17/2018 09/22/2018 Fall Risk Assessment 10/14/2022 10/14/2021 Covid-19 Vaccine (4 - 2023-2 5 season) 2024 07/25/2021, 11/26/2020, 11/02/2020 Well Visit 65+ 10/16/2024 10/16/2023, 08/22, 06/15/2020, Additional history exists Pneumococcal vaccine 65+ Completed 11/28/2015, 06/23 Colon Cancer Screening-CT Colonography Discontinued 05/19/2019, 12/13/2013 Colon Cancer Screening-Colonoscopy Discontinued 05/19/2019, 12/13/2013 Colon Cancer Screening-DNA Stool Discontinued 05/19/20 19, 12/13/2013 Colon Cancer Screening-FIT Discontinued 05/19/2019, Colon Cancer Screening-FOBT Discontinued 05/19/2019, 0 12/13/2013 Colon Cancer Screening-Sigmoidoscopy Discontinued 05/19/2019, 12/13/2013 Colorectal Cancer Screening Discontinued Influenza Vaccine Completed 06/17/2024, , 07/19/2020, Additional history exists Procedures Procedure Name Priority Date/Time Associated Diagnosis Comments COLONOSCOPY Routine 05/19/2019 from Last 3 Months or Most Recently Relevant to Health Maintenance Results * Colonoscopy (05/19/2019) Anatomical Region Laterality Modality Other us Historical Provider ENDOSCOPY PROCEDURES Candice l Result from Last 3 Months or Most Recently Relevant to Health Maintenance Insurance MEDICARE SOLUTIONS [facility] MEDICARE [facility] MEDICARE MEDICARE SOLUTIONS Advance Directives For more information, please contact: [phone] * Full Code (Latest Code Status on File) Date Activated Date Inactivated Comments 10/12/2021 5:52 PM 10/14/2021 3:35 PM * Full Code Date Activated Date Inactivated Comments 10/12/2021 5:51 PM 10/12/2021 5:52 PM Care Teams Senior Solutions Workflow Consultant Relationship Specialty Start Date End Date Zak Tripathi MD [address] [place] [address] PCP - General 11/29/16 [place] [address] [place] [address] Consulting Physician Urology 10/12/21
--- OUTSIDE RECORDS SUMMARY | 2024-10-28 17:41 | XMS_ITS | Referral Summary ---
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 Overview (03/12/2021): Added automatically from request for surgery [id number] Mitral valve prolapse 08/15/2020 Pure hypercholesterolemia 08/15/2020 [...] TD Preservative Free 11/28/2015 ZOSTER Recombinant 09/22/2018 Social History Tobacco Use Types Packs/Day Years [...] on file Legal Sex Male 8:18 PM PLASTICS DESIGN ENGINEER Gender Identity Male 10/16/2021 10:24 AM PLASTICS DESIGN ENGINEER Sexual Orientation Not on file Last Filed Vital Signs Vital Sign Reading Time Taken Comments Blood Pressure 140/86 10/16/2023 11:46 AM PLASTICS DESIGN ENGINEER Pulse 65 10/16/2023 11:46 AM PLASTICS DESIGN ENGINEER Temperature 36.5 C (97.7 F) 10/16/2023 11:46 AM PLASTICS DESIGN ENGINEER Respiratory Rate 18 10/14/2021 5:14 AM PLASTICS DESIGN ENGINEER Oxygen Saturation 97% 11/21/2022 2:41 PM PLASTICS DESIGN ENGINEER Inhaled Oxygen Concentration - - Weight 94.8 kg (209 lb) 10/16/2023 11:46 AM PLASTICS DESIGN ENGINEER Height 177.8 cm (5' 10 ) 11/21/2022 2:41 PM PLASTICS DESIGN ENGINEER Body Mass Index 29.99 11/21/2022 2:41 PM PLASTICS DESIGN ENGINEER Plan of Treatment Not on file Procedures Procedure Name Priority Date/Time Associated Diagnosis Comments COLONOSCOPY Routine 05/19/2019 from Last 3 Months or Most Recently Relevant to Health Maintenance Results * Colonoscopy (05/19/2019) Anatomical Region Laterality Modality Other us Historical Provider ENDOSCOPY PROCEDURES Candice l Result from Last 3 Months or Most Recently Relevant to Health Maintenance Insurance MEDICARE SOLUTIONS [facility] MEDICARE Address: [facility] [address] [place] [address] [facility] MEDICARE [employer] MEDICARE MEDICARE SOLUTIONS Advance Directives For more information, please contact: [phone] * Full Code (Latest Code Status on File) Date Activated Date Inactivated Comments 10/12/2021 5:52 PM 10/14/2021 3:35 PM * Full Code Date Activated Date Inactivated Comments 10/12/2021 5:51 PM 10/12/2021 5:52 PM Care Teams Automatic Bandsaw Tender Relationship Specialty Start Date End Date Zak Tripathi MD [address] [place] [address] PCP - General 11/29/16 [place] [address] [place] [id number] Consulting Physician Urology 10/12/21
[2024-10-28 17:43] VITALS: BP 195/88; PULSE 68; RESP 18; TEMP 36.7
--- OUTSIDE RECORDS SUMMARY | 2024-10-28 18:08 | XMS_ITS | Referral Summary ---
Author Organization 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 Overview (03/12/2021): Added automatically from request for surgery [id number] Mitral valve prolapse 08/15/2020 Pure hypercholesterolemia 08/15/2020 [...] on file Legal Sex Male 8:18 PM MANAGER MATERIALS MANAGEMENT Gender Identity Male 10/16/2021 10:24 AM MANAGER MATERIALS MANAGEMENT Sexual Orientation Not on file Last Filed Vital Signs Vital Sign Reading Time Taken Comments Blood Pressure 140/86 10/16/2023 11:46 AM MANAGER MATERIALS MANAGEMENT Pulse 65 10/16/2023 11:46 AM MANAGER MATERIALS MANAGEMENT Temperature 36.5 C (97.7 F) 10/16/2023 11:46 AM MANAGER MATERIALS MANAGEMENT Respiratory Rate 18 10/14/2021 5:14 AM MANAGER MATERIALS MANAGEMENT Oxygen Saturation 97% 11/21/2022 2:41 PM MANAGER MATERIALS MANAGEMENT Inhaled Oxygen Concentration - - Weight 94.8 kg (209 lb) 10/16/2023 11:46 AM MANAGER MATERIALS MANAGEMENT Height 177.8 cm (5' 10 ) 11/21/2022 2:41 PM MANAGER MATERIALS MANAGEMENT Body Mass Index 29.99 11/21/2022 2:41 PM MANAGER MATERIALS MANAGEMENT Plan of Treatment Not on file Procedures Procedure Name Priority Date/Time Associated Diagnosis Comments COLONOSCOPY Routine 05/19/2019 from Last 3 Months or Most Recently Relevant to Health Maintenance Results * Colonoscopy (05/19/2019) Anatomical Region Laterality Modality Other us Historical Provider ENDOSCOPY PROCEDURES Candice l Result from Last 3 Months or Most Recently Relevant to Health Maintenance Insurance MEDICARE SOLUTIONS [facility] MEDICARE [employer] MEDICARE MEDICARE SOLUTIONS Advance Directives For more information, please contact: [phone] * Full Code (Latest Code Status on File) Date Activated Date Inactivated Comments 10/12/2021 5:52 PM 10/14/2021 3:35 PM * Full Code Date Activated Date Inactivated Comments 10/12/2021 5:51 PM 10/12/2021 5:52 PM Care Teams Electrician Locomotive Relationship Specialty Start Date End Date Zak Tripathi MD [address] [place] [address] PCP - General 11/29/16 [place] [address] [place] [id number] Consulting Physician Urology 10/12/21
--- OUTSIDE RECORDS SUMMARY | 2024-10-28 18:08 | XMS_ITS | Clinical Summary ---
Author Organization [facility] al Address [address] [place] [address] Care Team Providers Care Plan Examiner Name Role Phone Zak Tripathi MD Primary Care Provider [phone]- [phone] Sergio Barnard MD Unavailable [phone] Allergies Active Allergy Reactions Criticality Noted [...] (09/25/2021): Added automatically from request for surgery [id number] Paroxysmal atrial flutter ([facility] 05/14/2021 Chronic anticoagulation 05/14/2021 Failure of penile implant ([facility] 03/12/2021 Overview (03/12/2021): Added automatically from request for surgery [id number] Mitral valve prolapse 08/15/2020 Pure hypercholesterolemia 08/15/2020 [...] 09/22/2018 Surgical History Surgery Date Site/Laterality Comments [place] UNLISTED PROCEDURE ABDOME N PERITONEUM & OMENTUM Hernia Repair - (Added by TW Conv) [place] INSJ PENILE PROSTHESOS INFLATABLE SELF-CONTAINED Surg Penis [...] on file Legal Sex Male 8:18 PM INTENSIVE CARE AMBULANCE PARAMEDIC Gender Identity Male 10/16/2021 10:24 AM INTENSIVE CARE AMBULANCE PARAMEDIC Sexual Orientation Not on file Obstetrics History Last Filed Vital Signs Vital Sign Reading Time Taken Comments Blood Pressure 140/86 10/16/2023 11:46 AM INTENSIVE CARE AMBULANCE PARAMEDIC Pulse 65 10/16/2023 11:46 AM INTENSIVE CARE AMBULANCE PARAMEDIC Temperature 36.5 C (97.7 F) 10/16/2023 11:46 AM INTENSIVE CARE AMBULANCE PARAMEDIC Respiratory Rate 18 10/14/2021 5:14 AM INTENSIVE CARE AMBULANCE PARAMEDIC Oxygen Saturation 97% 11/21/2022 2:41 PM INTENSIVE CARE AMBULANCE PARAMEDIC Inhaled Oxygen Concentration - - Weight 94.8 kg (209 lb) 10/16/2023 11:46 AM INTENSIVE CARE AMBULANCE PARAMEDIC Height 177.8 cm (5' 10 ) 11/21/2022 2:41 PM INTENSIVE CARE AMBULANCE PARAMEDIC Body Mass Index 29.99 11/21/2022 2:41 PM INTENSIVE CARE AMBULANCE PARAMEDIC Plan of Treatment Health Maintenance Due Date [...] Relevant to Health Maintenance Insurance MEDICARE SOLUTIONS [facility] MEDICARE Address: [address] [address] [place] [address] [facility] MEDICARE [facility] MEDICARE MEDICARE SOLUTIONS Advance Directives For more information, please contact: [phone] * Full Code (Latest Code Status on File) Date Activated Date Inactivated Comments 10/12/2021 5:52 PM 10/14/2021 3:35 PM * Full Code Date Activated Date Inactivated Comments 10/12/2021 5:51 PM 10/12/2021 5:52 PM Care Teams Plan Examiner Relationship Specialty Start Date End Date Zak Tripathi MD [address] [place] [address] PCP - General 11/29/16 [place] [address] [place] [address] Consulting Physician Urology 10/12/21
--- NOTE | 2024-10-28 18:13 | ED_ITS ---
HPI - General Adult General Chief complaint: Extremity Injury, Upper Stated complaint: from urgent care, L shoulder dislocation Time Seen by Provider: 10/28/24 17:54 History of Present Illness HPI narrative: Patient 79-year-old gentleman presents emergency department chief complaint of l eft shoulder dislocation. Patient reports that he fell down some steps had no head injury denies loss of consciousness reports he is on 81 mg aspirin on a blood thinners. Related Data Home Medications ?Medication ?Instructions ?Recorded ?Confirmed ?Last Taken ?Type aspirin 81 mg tablet 81 mg PO DAILY 04/18/21 10/28/24 Unknown History atorvastatin 20 mg tablet 20 mg PO HS 04/18/21 10/28/24 04/17/21 21:00 History losartan 50 mg tablet 50 mg PO DAILY 04/18/21 10/28/24 04/18/21 07:00 History omeprazole 20 mg capsule,delayed 20 mg PO DAILY 04/18/21 10/28/24 04/18/21 07:00 History release tamsulosin 0.4 mg capsule 0.4 mg PO DAILY 04/18/21 06/21/21 04/18/21 07:00 History Allergies Allergy/AdvReac Type Severity Reaction Status Date / Time ORION Inhibitors Allergy Rash Verified 10/28/24 17:38 Penicillins Allergy Rash Verified 10/28/24 17:38 Review of Systems Review of Systems: A 10 system review of systems was completed on the patient and is negative except for what is stated in the HPI. Nursing and ancillary documentation was reviewed. [facility] Past Medical History Medical History Atrial flutter by electrocardiogram (Unknown) Diverticulitis of large intestine with complication (Unknown) Enterovesical fistula (Unknown) Hypertension Surgical History Surgical History History of colon resection 04/25/2021 - hand assisted laparoscopic left (sigmoid) colon resection, takedown of entero-colic vesical fistula with repair of dome of bladder Family History Family History Mother Congestive heart failure Father Lung cancer Social History Social History Smoking status: Former smoker Alcohol intake: current Drinks per week: 4 Substance use: current Substance use type: marijuana Spiritual care concerns: No Exam Narrative: GENERAL: Well-appearing, well-nourished, and in no acute distress. HEAD: Normocephalic, atraumatic. EYES: PERRLA and EOMI. ENT: Nares clear, no rhinorrhea or epistaxis. Mucous membranes moist. NECK: Supple. CHEST: Clear to auscultation. No respiratory distress. HEART: Regular rate and rhythm. No murmur heard. Normal peripheral pulses. ABDOMEN: Soft, nontender, nondistended, normal active bowel sounds. EXTREMITIES: Normal range of motion in all extremities except for left upper extremity there is an abrasion present the left knee. No edema. SKIN: Warm, dry, no rash. NEURO: No focal deficits. Alert and oriented x3. PSYCH: Normal mood and affect. Course Vital Signs Vital signs: Vital Signs Temperature 36.7 C 10/28/24 17:43 Pulse Rate 68 10/28/24 17:43 Respiratory Rate 18 10/28/24 17:43 Blood Pressure 195/88 H 10/28/24 17:43 Oxygen Delivery Room Air 10/28/24 17:43 Temperature 36.3 C L 10/28/24 18:50 Pulse Rate 62 10/28/24 18:50 Respiratory Rate 20 10/28/24 18:50 Blood Pressure 171/95 H 10/28/24 18:50 Pulse Oximetry 97 10/28/24 18:50 Oxygen Delivery Room Air 10/28/24 18:50 Oxygen Flow Rate 1 10/28/24 18:20 Procedures Orthopedic Joint Reduction Joint #1: Orthopedic Joint Reduction Date: 10/28/24 Orthopedic Joint Reduction Time: 18:28 Time Out Performed: Yes Side: left Joint Reduction Location: shoulder Analgesia: procedural sedation Pre-Procedure Neuro Vascular Exam: normal Local Anesthesia: none Shoulder Technique Used (if applicable): traction/counter-traction Technique used: traction/counter-traction Post-reduction vascular: intact Post Reduction X-Ray Obtained: Yes Post Reduction X-Ray Results: reduced Splint Applied: Yes Procedural Sedation Procedural Sedation #1: Presedation Evaluation: Patient awake alert in no acute distress GENERAL: Well-appearing, well-nourished, and in no acute distress. HEAD: Normocephalic, atraumatic. EYES: PERRLA and EOMI. ENT: Nares clear, no rhinorrhea or epistaxis. Mucous membranes moist. NECK: Supple. CHEST: Clear to auscultation. No respiratory distress. HEART: Regular rate and rhythm. No murmur heard. Normal peripheral pulses. ABDOMEN: Soft, nontender, nondistended, normal active bowel sounds. EXTREMITIES: Normal range of motion decreased range of motion left shoulder. No edema. SKIN: Warm, dry, no rash. NEURO: No focal deficits. Alert and oriented x3. PSYCH: Normal mood and affect. Procedure: Close reduction of left shoulder Informed Consent Obtained: yes Equipment in Room: bag and mask, capnography, youth nutritional monitor, crash cart, oxygen, pulse oximeter and suction Plan for Sedation: moderate sedation ASA Class: II Mallampati Classification: class II NPO Status: last solid food (hours ago) (Noon) and last liquid food (hours ago) (noon) Explanation to Patient/Family: Risk/Benefits/Alternatives and Pt/Family agreed with plan Pt. Educated on Procedural Sedation: Yes Re-evaluated immediately prior: Yes Preparation: youth nutritional monitor applied, pulse oximeter, capnometry used, supplemental O2 applied, reversal agents at bedside, suction/airway equipment at bedside and IV secured Fentanyl: IV Fentanyl dose (mcg): 25 IV Propofol dose (mg): 80 Patient Tolerated Procedure: well and no complications Complications: none Total Sedation Time (min): 10 Medical Decision Making MDM Narrative Medical decision making narrative: Differential diagnosis includes shoulder dislocation, fracture, Left shoulder x-ray obtained at [facility] was positive for dislocation The shoulder was reduced Vital Signs Vital Signs: Vital Signs Temperature 36.7 C 10/28/24 17:43 Pulse Rate 68 10/28/24 17:43 Respiratory Rate 18 10/28/24 17:43 Blood Pressure 195/88 H 10/28/24 17:43 Oxygen Delivery Room Air 10/28/24 17:43 Temperature 36.3 C L 10/28/24 18:50 Pulse Rate 62 10/28/24 18:50 Respiratory Rate 20 10/28/24 18:50 Blood Pressure 171/95 H 10/28/24 18:50 Pulse Oximetry 97 10/28/24 18:50 Oxygen Delivery Room Air 10/28/24 18:50 Oxygen Flow Rate 1 10/28/24 18:20 Discharge Plan Discharge Clinical Impression: Dislocation of shoulder, left, closed, Contusion of left knee, Abrasion of knee, left Patient Disposition: Home, Self-Care Condition: Stable Instructions: Antibiotic Form, Shoulder Dislocation (ED), How to Use a Sling (ED), Moderate Sedation (ED), Abrasion (ED), Knee Pain (ED) Patient Language: Kosovan Prescriptions: No Action losartan 50 mg tablet 50 mg PO DAILY atorvastatin 20 mg tablet 20 mg PO HS tamsulosin 0.4 mg capsule 0.4 mg PO DAILY omeprazole 20 mg capsule,delayed release(DR/EC) 20 mg PO DAILY aspirin 81 mg Tablet 81 mg PO DAILY finasteride [Proscar] 5 mg Tablet 5 mg PO QAM Qty: 30 0RF metoprolol tartrate 25 mg Tablet 25 mg PO Q12HR Qty: 60 0RF Saccharomyces boulardii [Florastor] 250 mg capsule 250 mg PO BID 6 Days Qty: 12 0RF Follow-up/Referrals: Reno Douglas MD [Physician] - UNKNOWN,DOCTOR [Primary Care Provider] - Time of Disposition: 18:52
[2024-10-28 18:15] VITALS: BP 202/99; PULSE 69; RESP 15; TEMP 36.3; O2SAT 97
[2024-10-28] MEDS: SODIUM CHLORIDE 0.9% IV 1,000 ML 999 ML (18:15)
--- NOTE | 2024-10-28 18:18 | PC.NURSE ---
EDP Dr. Hansen at bedside. VORB to administer 25 mcg fentanyl IVP stat, given at 1818. Dr. Hansen pushed propofol 80mg @ 1820 for moderate sedation.
[2024-10-28 18:20] VITALS: BP 163/86; BP 203/100; PULSE 61; PULSE 66; RESP 17; RESP 20; TEMP 36.3; O2SAT 100; O2SAT 99
[2024-10-28 18:35] VITALS: BP 172/92; PULSE 61; RESP 14; TEMP 36.4; O2SAT 100
[2024-10-28 18:50] VITALS: BP 171/95; PULSE 62; RESP 20; TEMP 36.3; O2SAT 97
[2024-10-28 19:34] VITALS: BP 167/91; PULSE 67; RESP 18; O2SAT 96
== END 2024-10-28 19:35 | disposition home or self-care (01) ==
PROVIDERS: Emergency Provider Emergency Medicine
DX: S43.005A Unspecified dislocation of left shoulder joint, initial encounter (principal); S80.02XA Contusion of left knee, initial encounter; S80.212A Abrasion, left knee, initial encounter; I10 Essential (primary) hypertension; Z87.891 Personal history of nicotine dependence; Z79.82 Long term (current) use of aspirin; Z79.899 Other long term (current) drug therapy; M17.12 Unilateral primary osteoarthritis, left knee; W10.9XXA Fall (on) (from) unspecified stairs and steps, initial encounter
CPT/HCPCS: 23650; 73030; 73562; 96374; 99213; 99285; A4565; G0463; J2704; J3010; J7030